=== PATIENT | female | born 1940 | race Caucasian/White ===

== ENCOUNTER → 2018-03-23 13:59 | Outpatient (CLI) | payer MEDICARE, SELFPAY ==
--- NOTE | 2018-03-23 14:01 | DI.RAD.S_ITS ---
PROCEDURE: XR LUMBAR SPINE MIN 4V INDICATIONS: Evaluation TECHNIQUE: 4 views of the lumbar spine were acquired. COMPARISON: None. FINDINGS: Bones: No fracture or focal osseous destruction. Trace anterolisthesis of L4-L5. Diffuse facet arthropathy. Severe narrowing of the L3-L4 disc space. [id number] narrowing of the L1-L2 disc space. Partially visualized dextroscoliosis centered at L1 Soft tissues: Calcifications project in the right upper quadrant. No suspicious soft tissue calcifications. Oblique images: No pars defects. IMPRESSION: Multilevel lumbar disc degeneration as above, most pronounced at L3-L4 Facet arthropathy. Dextroscoliosis Dictated by: Tobias Meza M.D. on 03/23/2018 at 16:50 Approved by: Tobias Meza M.D. on 03/23/2018 at 16:51
== END ==
PROVIDERS: PCP Family Medicine; Visit Provider Physical Medicine & Rehabilitation
DX: M47.817 Spondylosis without myelopathy or radiculopathy, lumbosacral region (principal); M47.816 Spondylosis without myelopathy or radiculopathy, lumbar region; M51.36 Other intervertebral disc degeneration, lumbar region; M51.37 Other intervertebral disc degeneration, lumbosacral region; M41.86 Other forms of scoliosis, lumbar region
CPT/HCPCS: 72110; 99214

== ENCOUNTER 2018-05-11 10:41 | Emergency (ER) | payer MEDICARE, SELFPAY ==
[2018-05-11 10:45] VITALS: BP 199/92; PULSE 77; RESP 16; TEMP 36.6; O2SAT 100
[2018-05-11 11:03] LABS: Add Manual Diff / Slide Review NO; Basophils Percent Auto 0.9 % (0-2); Eosinophils Percent Auto 1.2 % (2-4); Hematocrit 38.4 % (36-46); Hemoglobin 13.1 g/dL (12.0-16.0); Lymphocytes Percent Auto 15.8 % (25-40); Mean Corpuscular Hemoglobin 30.5 PG (26-34); Mean Corpuscular Volume 89.7 fL (80-100); Monocytes Percent Auto 6.3 % (3-14); Neutrophils Absolute Auto 5800 /uL (3000-5900); Neutrophils Percent Auto 75.8 % (50-75); Platelet Count 358 X10^3/uL (150-400); Red Blood Cell Count 4.28 X10^6/uL (4.0-5.2); Red Cell Distribution Width 12.3 % (11.6-14.8); White Blood Cell Count 7.7 X10^3/uL (4.5-11.0)
[2018-05-11 11:14] LABS: Alanine Aminotransferase 19 IU/L (9-52); Albumin 4.5 g/dL (3.5-5.0); Albumin Globulin Ratio 1.4 (1.0-2.8); Alkaline Phosphatase 83 U/L (38-126); Aspartate Aminotransferase 27 IU/L (14-36); Bilirubin Total 0.7 mg/dL (0.2-1.3); Blood Urea Nitrogen 10 mg/dL (7-17); Carbon Dioxide 23 mmol/L (22-32); Chloride 97 mmol/L (98-107); Creatine Kinase 52 U/L (30-135); Estimated Glomerular Filt Rate > 60.0 mL/min (>60); Globulin 3.2 g/dL (1.7-4.1); Glucose 129 mg/dL (80-110); Potassium 4.4 mmol/L (3.4-5.1); Sodium 134 mmol/L (137-145); Total Protein 7.7 g/dL (6.3-8.2)
[2018-05-11 11:16] LABS: HEMOLYSIS 79 (0-50)
[2018-05-11 11:26] LABS: Troponin I < 0.012 ng/mL (0.01-0.034)
[2018-05-11 11:58] VITALS: BP 175/85; PULSE 71; RESP 15; O2SAT 100
--- NOTE | 2018-05-21 13:32 | ED_ITS ---
HPI - Chest Pain General Chief Complaint: Chest Pain Stated Complaint: Doc thinks had heart attack Time Seen by Provider: 05/11/18 10:52 Source: patient Mode of arrival: ambulatory Limitations: no limitations History of Present Illness HPI narrative: Patient presents the emergency department 36 hr after onset of left shoulder and arm pain and high blood pressure. Patient states she has never had symptoms like this before; she was at rest when she checked her blood pressure, and discovered that it was nearly 200 systolic. She states she then noticed a pain in her left shoulder radiating down her left arm. She states that this was quite short-lived and only lasted a few ?few minutes,? and that it was a 4/10 at worst. Nothing made the pain better or worse. When she saw her doctor the next morning, he felt that she should be transferred here emergently for further evaluation. However, the patient stated that she did not want to fly and a small aircraft, as the winds were very strong, and she decided to wait until the weather calmed down and she could take a ferry. Patient states that she otherwise was stable, and that the both pain resolved on its own, though her blood pressure has remained elevated. Patient denies further complaints at this time. She states she has not had any nausea or vomiting; no diaphoresis or lightheadedness. Patient has not been ill with anything recently. No history of dysrhythmia. Patient states she is otherwise healthy for the most part, though she does have hypertension, hyperlipidemia, and hypothyroidism. She states her blood pressure is usually well controlled on her current medication regimen. Related Data Home Medications Medication Instructions Recorded Confirmed dorzolamide 22.3 mg-timolol 6.8 1 drp EYE-BOTH BID ml 03/23/18 05/11/18 mg/mL eye drops Eye Vitamins 1 dose PO DAILY 05/11/18 05/11/18 Fish Oil 1 cap PO DAILY 05/11/18 05/11/18 Vitamin D3 1 cap PO DAILY 05/11/18 05/11/18 zolpidem 10 mg PO BEDTIME PRN 05/11/18 05/11/18 Previous Rx's Medication Instructions Recorded levothyroxine [Synthroid] 75 mcg PO QAM #90 tab 09/13/16 lisinopril 10 mg PO BID #60 tab 10/11/16 Allergies Allergy/AdvReac Type Severity Reaction Status Date / Time amoxicillin [AMOXICILLIN] Allergy Mild rash Verified 03/23/18 13:03 brimonidine Allergy Unknown Verified 03/23/18 13:03 Sulfa (Sulfonamide Allergy Unknown Verified 03/23/18 13:03 Antibiotics) Review of Systems Review of Systems All systems reviewed & are unremarkable except as noted in HPI and below Constitutional Denies chills, Denies fever(s), Denies lethargy and Denies weakness Eyes Denies change in vision, Denies eye discharge, Denies irritation and Denies loss of vision ENT Ears, Nose, Mouth, and Throat: Denies change in voice, Denies neck pain and Denies sore throat Cardiovascular Reports chest pain, Denies irregular heart rhythm, Denies lightheadedness, Denies palpitations, Denies dyspnea, Denies dyspnea on exertion and Denies orthopnea Respiratory Denies cough, Denies dyspnea, Denies dyspnea on exertion and Denies wheezing Gastrointestinal Gastrointestinal: Denies abdominal pain, Denies change in bowel habits, Denies diarrhea, Denies nausea and Denies vomiting Genitourinary Denies hematuria, Denies flank pain, Denies urinary incontinence and Denies urinary urgency Musculoskeletal Denies neck pain Integumentary/Breasts Denies pruritus, Denies erythema, Denies rash and Denies wounds Neurologic Denies confusion, Denies loss of vision and Denies weakness Psychiatric Denies anxiety, Denies confusion, Denies depression, Denies homicidal ideation and Denies suicidal ideation Endocrine Denies palpitations Hematologic/Lymphatic Denies easy bruising Allergic/Immunologic Denies wheezing [facility] Medical History Lumbosacral spondylosis (Chronic) Atypical chest pain (Acute) Chest pain (Acute) Hypertension (Acute 09/17/14) Hyperlipidemia (09/17/14) Hypothyroidism (09/17/14) Macular degeneration (07/28/15) Primary open angle glaucoma (POAG) of both eyes (07/28/15) Status post carotid endarterectomy (07/28/15) History of malignant neoplasm of breast (07/28/16) HTN (hypertension) (Acute) Surgical History Status post partial mastectomy Family History Brother Age: 75 Stroke Father Stroke Mother Heart disease Social History Smoking Status: Never smoker Exam Initial Vital Signs Initial Vital Signs: Vital Signs Temperature 97.9 F 05/11/18 10:45 Pulse Rate 77 05/11/18 10:45 Respiratory Rate 16 05/11/18 10:45 Blood Pressure 199/92 H 05/11/18 10:45 Pulse Oximetry 100 05/11/18 10:45 Const General: cooperative and well developed Nutritional Appearance: well nourished Orientation: alert, awake, oriented x3 and not confused [facility] Head: normocephalic and atraumatic Ears: external ears normal Nose: external nose normal and No nasal discharge Face and sinus: face symmetric and No dry mucous membranes Mouth: oral mucosae normal and moist mucous membranes Teeth and gingiva: dentition normal Eyes General: appearance normal, both eyes and all related structures Eyelids: eyelids normal Conjunctivae: conjunctivae normal Sclera: sclerae normal Pupils: PERRL EOM: EOM intact bilaterally Neck Neck: normal visual inspection, trachea midline, No lymphadenopathy, No midline deformity and No JVD Lymphatic: No lymphedema Chest Chest: normal inspection of the chest Resp Effort & Inspection: normal respiratory effort, able to speak in complete sentences, no respiratory distress and no use of accessory muscles Auscultation: clear to auscultation bilaterally, no rales, no rhonchi and no wheezes Cardio Rate: regular rate Rhythm: regular rhythm Heart Sounds: no click, no gallops, no murmurs and no rubs Pulses: normal peripheral pulses GI Inspection: non-distended Palpation: soft, no hepatosplenomegaly, No guarding, No pulsatile mass and No tender Auscultation: normal bowel sounds Back/Spine/Pelvis Back: No CVA tenderness Cervical Spine: cervical ROM normal and No pain with cervical ROM Thoracic/Lumbar Spine: thoracic and lumbar spine normal to inspection Skin General: no rashes or lesions noted, No jaundice and No petechiae Neuro General: alert, oriented x3, gait normal and no focal motor deficits Speech: speech normal Extrem General: full ROM, no clubbing, cyanosis or edema, no pedal edema and no calf tenderness Psych Appearance: well kempt Mental Status: mental status grossly normal Attitude: cooperative Thought Content: normal and suicidality Judgment: judgment good Course Course Narrative: The patient was stable in the emergency department, and her chest pain had long since resolved. Blood pressure was still somewhat elevated , though was found to be progressively normalizing throughout her stay. She was worked up with an EKG and labs, both of which were unremarkable. I discussed with the patient that at this point, this far out, and she had had an NV, this should show up S a positive troponin. Have discussed with the patient that she should follow this incident up with a stress test, which can be arranged by her primary care physician. If she develops further chest pain or other concerning symptoms, such as shortness of breath or syncope, then she will probably need to be admitted to the hospital for further evaluation, or have a more urgent cardiology consultation. However, at this point, it is not clear exactly what caused her blood pressure to elevate or the pain to occur. However, no emergent condition has been identified. We have discussed the usual indications for return. MDM - Chest Pain Medical Records Data Attestation: I reviewed the patient's medical records. Lab Data Attestation: I reviewed the patient's lab results. Result diagrams: 05/11/18 10:50 05/11/18 10:50 Lab Results 05/11/18 05/11/18 Range/Units 10:50 10:50 WBC 7.7 (4.5-11.0) X10^3/uL RBC 4.28 (4.0-5.2) X10^6/uL Hgb 13.1 (12.0-16.0) g/dL Hct 38.4 (36-46) % MCV 89.7 (80-100) fL MCH 30.5 (26-34) PG MCHC 34.0 (30-36) % RDW 12.3 (11.6-14.8) % Plt Count 358 (150-400) X10^3/uL Neut % (Auto) 75.8 H (50-75) % Lymph % (Auto) 15.8 L (25-40) % [place] % (Auto) 6.3 (3-14) % Eos % (Auto) 1.2 L (2-4) % Baso % (Auto) 0.9 (0-2) % Neut # (Auto) 5800 (4090-1284) /uL Sodium 134 L (137-145) mmol/L Potassium 4.4 (3.4-5.1) mmol/L Chloride 97 L (98-107) mmol/L Carbon Dioxide 23 (22-32) mmol/L BUN 10 (7-17) mg/dL Creatinine 0.50 L (0.52-1.04) mg/dL Estimated GFR > 60.0 (>60) mL/min BUN/Creatinine Ratio 20.0 (6-22) Glucose 129 H (80-110) mg/dL Calcium 9.0 (8.4-10.2) mg/dL Total Bilirubin 0.7 (0.2-1.3) mg/dL AST 27 (14-36) IU/L ALT 19 (9-52) IU/L Alkaline Phosphatase 83 (38-126) U/L Total Creatine Kinase 52 (30-135) U/L CK-MB (CK-2) TNP CK-MB (CK-2) Rel Index TNP Troponin I < 0.012 (0.01-0.034) ng/mL Total Protein 7.7 (6.3-8.2) g/dL Albumin 4.5 (3.5-5.0) g/dL Globulin 3.2 (1.7-4.1) g/dL Albumin/Globulin Ratio 1.4 (1.0-2.8) ECG Data Attestation: I personally reviewed and interpreted this ECG as follows: (See below) Interpretation: Twelve lead EKG performed May 11, 2018 at 10:50 a.m., as follows: Regular ventricular rhythm with a rate of 82 beats per min OR interval 177 milliseconds QRS duration 93 millisecond QTC interval 427 milliseconds Left axis deviation Nonspecific ST T wave changes In summary, normal sinus rhythm, with marked left axis deviation; no STEMI; in summary, abnormal EKGs interpreted by ED MD. Discharge Plan Departure Patient Disposition: Home Clinical Impression: Chest pain, Hypertension Discharge Date/Time: 05/11/18 11:59 Interventions: ED Discharge Assessment Last Done: 05/11/18 11:58 Instructions: DI for High Blood Pressure, DI for Chest Pain Activity Restrictions/Additional Instructions: Your labs and EKG look great today. By now, if you had had a heart attack within the last day or two, we should see elevated cardiac enzymes in your blood. Because these take a number of days to be taken out of your system by your body, the numbers remain positive for some days afterward. However, if you had an abnormal EKG, it is probably a good idea to have another stress test done. Please talk to your primary doctor about having this done. Prescriptions: No Action levothyroxine [Synthroid] 75 MCG tablet 75 mcg PO QAM Qty: 90 RF: 2 lisinopril 10 MG tablet 10 mg PO BID Qty: 60 RF: 11 Eye Vitamins 1 dose PO DAILY RF: 0 Fish Oil 1 cap PO DAILY RF: 0 Vitamin D3 1 cap PO DAILY RF: 0 zolpidem 10 MG tablet 10 mg PO BEDTIME PRN (Reason: Sleep) RF: 0 dorzolamide-timolol [Cosopt] 22.3-6.8 mg/mL drops 1 drp EYE-BOTH BID RF: 0 Referrals: North Hart MD [Primary Care Provider] -
== END 2018-05-11 11:59 | disposition home or self-care (01) ==
PROVIDERS: Emergency Provider Emergency Medicine; PCP Family Medicine
DX: I10 Essential (primary) hypertension (principal); R07.89 Other chest pain
CPT/HCPCS: 36415; 80053; 82550; 84484; 85025; 93005; 93010; 99282; 99284

== ENCOUNTER → 2018-12-27 12:25 | Outpatient (CLI) | payer MEDICARE, SELFPAY ==
--- NOTE | 2018-12-27 | DI.MRI.S_ITS ---
PROCEDURE: MR LUMBAR SPINE WO CON INDICATIONS: Spondylosis without myelopathy or radiculopathy TECHNIQUE: Noncontrast sagittal T1 spin echo and T2 fast echo, sagittal STIR, axial T1 and T2 fast spin echo through the lumbar spine. In cases with scoliosis, additional coronal T2 fast spin echo may be performed. COMPARISON: [facility], CR, XR LUMBAR SPINE MIN 4V, 03/23/2018, 13:46. FINDINGS: Image quality: Excellent. Alignment and Curvature: Mild dextroconvex scoliotic curvature is seen. Minimal retrolisthesis is seen at the L1-L2 and L2-L3 levels. Bone Marrow: Marrow is of normal overall signal. There is a fracture of the superior endplate of T12, with 20% loss of height centrally. There is decreased T1 weighted signal and increased T2-weighted/STIR signal. No posterior displacement of fracture fragments can be seen. Spinal Cord: Conus medullaris terminates at the L1 level. Visualized cord demonstrates normal signal and size. Paraspinous Soft Tissues: No paravertebral masses. T12-L1: Normal appearance. L1-L2: The disc height is well-preserved. Loss of disc signal is seen at this level. Mild generalized disc bulge is seen. L2-L3: The disc height is well-preserved. Loss of disc signal is seen at this level. Mild generalized disc bulge is seen. Mild bilateral neural foraminal narrowing is seen. No significant central canal narrowing is seen. L3-L4: Moderate to severe loss of disc height and disc signal are seen, particularly on the left side. Endplate irregularity is seen. Reactive marrow endplate changes are seen, which are hyperintense on T1-weighted and T2-weighted imaging and most consistent with fatty metaplasia (Modic type II changes). Moderate to prominent disc bulge is seen, which is eccentric to the left. There is moderate left-sided and mild right-sided neural foraminal narrowing seen. Mild central canal narrowing is seen. L4-L5: Mild loss of disc height is seen. Loss of disc signal is seen. Moderate generalized disc bulge is seen. There is moderate right-sided and mild left-sided facet seen. There is moderate bilateral neural foraminal narrowing seen at this level. Mild central canal narrowing is seen. L5-S1: The disc height is well-preserved. Loss of disc signal is seen at this level. Minimal disc bulge is seen. [id number] facet hypertrophy is seen at this level. Mild bilateral neural foraminal narrowing is seen. No significant central canal narrowing is seen. IMPRESSION: Multiple levels of lumbar spine degenerative change are seen, which are most prominent at the L3-L4 level. Likely subacute compression deformity of the superior endplate of T12, with 20% loss of height centrally. No posterior displacement of fracture fragments can be seen. Dictated by: Lauro Puri M.D. on 12/27/2018 at 14:31 Approved by: Lauro Puri M.D. on 12/27/2018 at 14:37
== END ==
PROVIDERS: PCP Family Medicine; Visit Provider Physical Medicine & Rehabilitation
DX: M47.816 Spondylosis without myelopathy or radiculopathy, lumbar region (principal)
CPT/HCPCS: 72148

== ENCOUNTER → 2020-10-28 08:32 | Outpatient (CLI) | payer MEDICARE, SELFPAY ==
[2020-10-28 19:32] LABS: Alanine Aminotransferase 14 IU/L (<35); Albumin 4.1 g/dL (3.5-5.0); Albumin Globulin Ratio 1.6 (1.0-2.8); Alkaline Phosphatase 63 U/L (38-126); Aspartate Aminotransferase 28 IU/L (14-36); BUN Creatinine Ratio 22.7 (6-22); Bilirubin Total 0.5 mg/dL (0.2-1.3); Blood Urea Nitrogen 15 mg/dL (7-17); Calcium 9.2 mg/dL (8.4-10.2); Carbon Dioxide 26 mmol/L (22-32); Chloride 96 mmol/L (98-107); Cholesterol 231 mg/dL (140-199); Estimated Glomerular Filt Rate > 60.0 mL/min (>60); Globulin 2.5 g/dL (1.7-4.1); Glucose 91 mg/dL (80-110); HDL Cholesterol 64 mg/dL (40-60); HEMOLYSIS < 15 (0-50); LDL Cholesterol Calculated 143 mg/dL (<100); Potassium 4.5 mmol/L (3.4-5.1); Sodium 130 mmol/L (137-145); Total Protein 6.6 g/dL (6.3-8.2); Triglycerides 121 mg/dL (35-150)
[2020-10-28 19:34] LABS: Add Manual Diff / Slide Review NO; Basophils Absolute Auto 100 /uL (0-100); Basophils Percent Auto 2.4 % (0-2); Eosinophils Absolute Auto 200 /uL (0-450); Eosinophils Percent Auto 4.4 % (2-4); Hematocrit 38.5 % (36-46); Hemoglobin 12.7 g/dL (12.0-16.0); Lymphocytes Absolute Auto 1200 /uL (1100-4500); Lymphocytes Percent Auto 30.8 % (25-40); Mean Corpuscular HGB Conc 33.1 % (30-36); Mean Corpuscular Hemoglobin 30.3 PG (26-34); Mean Corpuscular Volume 91.6 fL (80-100); Monocytes Absolute Auto 500 /uL (0-900); Monocytes Percent Auto 11.9 % (3-14); Neutrophils Absolute Auto 2000 /uL (1500-7000); Neutrophils Percent Auto 50.5 % (50-75); Platelet Count 240 X10^3/uL (150-400); Red Cell Distribution Width 13.1 % (11.6-14.8)
[2020-10-28 20:01] LABS: TSH w/ Reflex to FT4 1.96 uIU/mL (0.47-4.68)
== END ==
PROVIDERS: PCP Family Medicine; Visit Provider Family Medicine
DX: E03.9 Hypothyroidism, unspecified (principal); R07.89 Other chest pain; I10 Essential (primary) hypertension; E78.5 Hyperlipidemia, unspecified; G47.00 Insomnia, unspecified
CPT/HCPCS: 80053; 80061; 84443; 85025

== ENCOUNTER → 2021-07-08 08:50 | Outpatient (CLI) | payer MEDICARE, SELFPAY ==
[2021-07-08 20:10] LABS: COVID19 - ORCAS (NP or Nasal) Negative (Negative)
== END ==
PROVIDERS: PCP Physician Assistant Medical; Visit Provider Physician Assistant
DX: Z20.822 Contact with and (suspected) exposure to COVID-19 (principal)
CPT/HCPCS: U0003

== ENCOUNTER 2021-07-10 14:41 | Emergency (ER) | payer MEDICARE, SELFPAY ==
[2021-07-10] VITALS (9 sets, daily range): BP systolic 109–174; BP diastolic 61–82; PULSE 73–96; RESP 16–24; TEMP 37; O2SAT 91–100; BMI 25.0
--- NOTE | 2021-07-10 14:51 | DI.RAD.S_ITS ---
PROCEDURE: XR CHEST 1V INDICATIONS: chest pain TECHNIQUE: One view of the chest was acquired. COMPARISON: None. FINDINGS: Surgical changes and devices: Right axilla surgical clips.. Lungs and pleura: Lungs are clear. No pleural effusions or pneumothorax. Mediastinum: Mediastinal contours appear normal. Heart size is normal. Bones and chest wall: No suspicious bony lesions. Overlying soft tissues appear unremarkable. IMPRESSION: No acute cardiopulmonary disease process. Dictated by: Evelyne Don MD, PhD on 07/10/2021 at 15:16 Approved by: Evelyne Don MD, PhD on 07/10/2021 at 15:16
[2021-07-10 15:44] LABS: Add Manual Diff / Slide Review NO; Basophils Absolute Auto 100 /uL (0-100); Basophils Percent Auto 1.3 % (0-2); Eosinophils Absolute Auto 100 /uL (0-450); Eosinophils Percent Auto 2.6 % (2-4); Hematocrit 38.3 % (36-46); Hemoglobin 13.1 g/dL (12.0-16.0); Lymphocytes Absolute Auto 1100 /uL (1100-4500); Lymphocytes Percent Auto 20.3 % (25-40); Mean Corpuscular HGB Conc 34.1 % (30-36); Mean Corpuscular Hemoglobin 30.9 PG (26-34); Mean Corpuscular Volume 90.6 fL (80-100); Monocytes Absolute Auto 500 /uL (0-900); Monocytes Percent Auto 8.7 % (3-14); Neutrophils Absolute Auto 3700 /uL (1500-7000); Neutrophils Percent Auto 67.1 % (50-75); Platelet Count 287 X10^3/uL (150-400); Red Blood Cell Count 4.22 X10^6/uL (4.0-5.2); Red Cell Distribution Width 13.2 % (11.6-14.8); White Blood Cell Count 5.6 X10^3/uL (4.5-11.0)
[2021-07-10 15:48] LABS: Alanine Aminotransferase 34 IU/L (<35); Albumin 4.8 g/dL (3.5-5.0); Albumin Globulin Ratio 1.7 (1.0-2.8); Alkaline Phosphatase 66 U/L (38-126); Aspartate Aminotransferase 35 IU/L (14-36); BUN Creatinine Ratio 18.4 (6-22); Bilirubin Total 0.7 mg/dL (0.2-1.3); Blood Urea Nitrogen 16 mg/dL (7-17); Calcium 9.7 mg/dL (8.4-10.2); Carbon Dioxide 28 mmol/L (22-32); Chloride 102 mmol/L (98-107); Creatine Kinase 47 U/L (30-135); Estimated Glomerular Filt Rate > 60.0 mL/min (>60); Globulin 2.8 g/dL (1.7-4.1); Glucose 114 mg/dL (80-110); HEMOLYSIS 17 (0-50); Lipase 163 U/L (23-300); Magnesium 2.1 mg/dL (1.6-2.3); Potassium 3.8 mmol/L (3.4-5.1); Sodium 135 mmol/L (137-145); Total Protein 7.6 g/dL (6.3-8.2)
[2021-07-10 15:59] LABS: Troponin I < 0.012 ng/mL (0.01-0.034)
--- NOTE | 2021-07-10 17:12 | ED_ITS ---
HPI - Arrhythmia/Palpitations General Chief Complaint: Arrhythmia/Palpitations Stated Complaint: Afib, Sent By [employer] Time Seen by Provider: 07/10/21 15:26 Source: patient Mode of arrival: Ambulatory History of Present Illness HPI narrative: Patient is a 81-year-old female who has history of hypertension presenting at request of primary care provider. She says she has felt dizzy lightheaded for while but getting much worse for about 2 weeks. She has some shortness of breath with exertion and some chest heaviness as well. She was worried about COVID and had a negative COVID test today. She son infomercial on TV about atrial fibrillation and thought it might be that. She went to her primary care provider for she was found to be in new onset atrial fibrillation. She denies any palpitations fluttering nausea vomiting. She has no numbness tingling or weakness. At this time her heart rate is controlled with a rate under 100. She took 81 mg of aspirin already today. Related Data Home Medications Medication Instructions Recorded Confirmed dorzolamide 22.3 mg-timolol 6.8 1 drp EYE-BOTH BID ml 03/23/18 04/09/21 mg/mL eye drops (Cosopt) Eye Vitamins 1 dose PO DAILY 05/11/18 04/09/21 Fish Oil 1 cap PO DAILY 05/11/18 04/09/21 Vitamin D3 1 cap PO DAILY 05/11/18 04/09/21 aspirin 81 mg tablet,delayed 81 mg PO DAILY 10/06/20 04/09/21 release (Adult Low Dose Aspirin) Previous Rx's Medication Instructions Recorded amlodipine 5 mg tablet 5 mg PO DAILY #90 tab 01/07/21 levothyroxine 75 mcg tablet 75 mcg PO QAM #90 tab 02/20/21 (Synthroid) lisinopril 10 mg tablet 10 mg PO BID #180 tab 03/02/21 pharmacy compounding accessory See Rx Instructions .ROUTE 04/09/21 .COMPLEX #24 g tramadol 50 mg tablet 50 mg PO BEDTIME #20 tab 04/09/21 triamcinolone acetonide 0.025 % 1 applic TOPICAL BID #60 ml 04/09/21 lotion zolpidem 10 mg tablet 5 mg PO BEDTIME PRN #30 tab 05/26/21 metoprolol succinate 25 mg 25 mg PO DAILY #30 tab 07/10/21 tablet,extended release 24 hr Allergies Allergy/AdvReac Type Severity Reaction Status Date / Time amoxicillin [AMOXICILLIN] Allergy Mild rash Verified 07/10/21 14:51 adhesive Allergy Unknown Rash Verified 07/10/21 14:51 brimonidine Allergy Unknown Verified 07/10/21 14:51 fentanyl Allergy Unknown Verified 07/10/21 14:51 Sulfa (Sulfonamide Allergy Unknown Verified 07/10/21 14:51 Antibiotics) Review of Systems Review of Systems Narrative: GENERAL: Denies chills, fatigue, malaise, fever, sweats, travel HEENT: Denies sinus pain, ear pain, sore throat, difficulty swallowing, neck pain RESPIRATORY: See HPI CARDIOVASCULAR: See HPI GASTROINTESTINAL: Denies nausea, vomiting, abdominal pain, diarrhea, consti pation, melena. : Denies dysuria, frequency, incontinence, hematuria, urinary retention, flank pain. MUSCULOSKELETAL: Denies weakness, joint pain, or bony pain SKIN: No rash, no erythema, no pruritus NEUROLOGIC: See HPI PSYCHIATRIC: No concerning psychosocial issues. 12 point review of systems is negative except for those stated above and HPI Patient History Medical History Atypical chest pain Chest pain History of malignant neoplasm of breast (07/28/16) HTN (hypertension) Hyperlipidemia (09/17/14) Hypertension (09/17/14) Hypothyroidism (09/17/14) Lumbosacral spondylosis Macular degeneration (07/28/15) Primary open angle glaucoma (POAG) of both eyes (07/28/15) Recurrent UTI Status post carotid endarterectomy (07/28/15) Surgical History Status post partial mastectomy Family History Brother Age: 78 Stroke Father Stroke Mother Heart disease Social History Smoking Status: Never smoker Smoking Status: Never smoker alcohol intake frequency: holidays/special occasions only Substance Use Type: does not use Exam Initial Vital Signs Initial Vital Signs: Vital Signs Temperature 98.6 F 07/10/21 14:46 Pulse Rate 86 07/10/21 14:46 Respiratory Rate 16 07/10/21 14:46 Blood Pressure 164/79 H 07/10/21 14:46 Pulse Oximetry 98 07/10/21 14:46 GENERAL: Alert well-appearing 81-year-old female HEENT: Head atraumatic,EOMI, pupils reactive, face symmetric, moist mucous membranes CARDIOVASCULAR: Irregularly irregular no murmurs RESPIRATORY: Breath sounds equal bilaterally, no wheezes rales or rhonchi. ABDOMEN: Soft, nontender. Normoactive bowel sounds all 4 quadrants. No guarding or rebound. EXTREMITIES: Normal range of motion, no clubbing or edema. Neurovascularly intact NEUROLOGICAL: Alert and oriented x4.Normal gait and speech. SKIN: Warm, dry, no laceration, no petechiae, no rashes or lesions. Scores CHADS-VASc Congestive heart failure: no Hypertension: yes Age 75 years or older: yes Diabetes mellitus: no Stroke, TIA, or TE: no Vascular disease: no Age 65 to 74 years: no Sex category (female): Female CHADS-VASc Score: 4 Course Orders Ordered: ED Orders 07/10/21 14:51 XR chest 1V Stat EKG-12 Lead Stat 07/10/21 15:15 Complete Blood Count AUTO DIFF Stat Comprehensive Metabolic Panel Stat Lipase Stat Magnesium Stat Troponin & CK Cardiac Panel Stat Discontinued Medications Metoprolol Succinate (Metoprolol Er 25 Mg Tablet) 25 mg PO NOW ONE Stop: 07/10/21 17:40 Last Admin: 07/10/21 18:13 Dose: 25 mg Documented by: JOSAFAT Vital Signs Vital signs: Vital Signs - 8 hr 07/10/21 14:46 07/10/21 15:24 07/10/21 15:30 Temperature 98.6 F Pulse Rate 86 89 80 Respiratory Rate 16 20 20 Blood Pressure 164/79 H 109/72 Pulse Oximetry 98 100 99 07/10/21 16:00 07/10/21 16:30 07/10/21 17:00 Temperature Pulse Rate 77 81 92 H Respiratory Rate 19 20 20 Blood Pressure 117/65 118/61 Pulse Oximetry 99 98 100 07/10/21 17:30 07/10/21 18:00 07/10/21 18:13 Temperature Pulse Rate 95 H 89 96 H Respiratory Rate 24 22 23 Blood Pressure 146/71 H 174/82 H Pulse Oximetry 91 99 MDM - Arrhythmia/Palpitations Lab Data Result diagrams: 07/10/21 15:15 07/10/21 15:15 Labs: Lab Results 07/10/21 07/10/21 Range/Units 15:15 15:15 WBC 5.6 (4.5-11.0) X10^3/uL RBC 4.22 (4.0-5.2) X10^6/uL Hgb 13.1 (12.0-16.0) g/dL Hct 38.3 (36-46) % MCV 90.6 (80-100) fL MCH 30.9 (26-34) PG MCHC 34.1 (30-36) % RDW 13.2 (11.6-14.8) % Plt Count 287 (150-400) X10^3/uL Neut % (Auto) 67.1 (50-75) % Lymph % (Auto) 20.3 L (25-40) % [place] % (Auto) 8.7 (3-14) % Eos % (Auto) 2.6 (2-4) % Baso % (Auto) 1.3 (0-2) % Neut # (Auto) 3700 (1039-2150) /uL Lymph # (Auto) 1100 (8810-7638) /uL [place] # (Auto) 500 (0-900) /uL Eos # (Auto) 100 (0-450) /uL Baso # (Auto) 100 (0-100) /uL Sodium 135 L (137-145) mmol/L Potassium 3.8 (3.4-5.1) mmol/L Chloride 102 (98-107) mmol/L Carbon Dioxide 28 (22-32) mmol/L BUN 16 (7-17) mg/dL Creatinine 0.87 (0.52-1.04) mg/dL Estimated GFR > 60.0 (>60) mL/min BUN/Creatinine Ratio 18.4 (6-22) Glucose 114 H (80-110) mg/dL Calcium 9.7 (8.4-10.2) mg/dL Magnesium 2.1 (1.6-2.3) mg/dL Total Bilirubin 0.7 (0.2-1.3) mg/dL AST 35 (14-36) IU/L ALT 34 (<35) IU/L Alkaline Phosphatase 66 (38-126) U/L Total Creatine Kinase 47 (30-135) U/L CK-MB (CK-2) TNP CK-MB (CK-2) Rel Index TNP Troponin I < 0.012 (0.01-0.034) ng/mL Total Protein 7.6 (6.3-8.2) g/dL Albumin 4.8 (3.5-5.0) g/dL Globulin 2.8 (1.7-4.1) g/dL Albumin/Globulin Ratio 1.7 (1.0-2.8) Lipase 163 (23-300) U/L Imaging Data Chest x-ray: Radiologist's Impresson: PROCEDURE:? XR CHEST 1V ? INDICATIONS:? chest pain ? TECHNIQUE:? One view of the chest was acquired.? ? COMPARISON:? None. ? FINDINGS:? ? Surgical changes and devices:? Right axilla surgical clips..? ? Lungs and pleura:? Lungs are clear.? No pleural effusions or pneumothorax.? ? Mediastinum:? Mediastinal contours appear normal.? Heart size is normal.? ? Bones and chest wall:? No suspicious bony lesions.? Overlying soft tissues appear unremarkable.? ? IMPRESSION:? No acute cardiopulmonary disease process. ? ? Dictated by: Evelyne Don MD, PhD on 07/10/2021 at 15:16 ?? ECG Data Interpretation: Atrial fibrillation rate 89, PVCs noted no ST changes MDM Narrative Medical decision making narrative: Patient is in atrial fibrillation she is not a candidate for cardioversion she minimal symptoms. Currently she is rate controlled. She does have elevated chads Vasc score however at the age of 81 hesitant to put her on anything other than aspirin with out discussing with her primary care provider. She has seen Dr. Ashraf in the past but would like to see someone else who is closer. She is given 1 dose of metoprolol in the ED recommend she continue her aspirin discussed with her stroke risks of atrial fibrillation. At this time she does not want to stay in the hospital. I discussed all findings with the patient, Education has been performed regarding treatment plan, diagnosis, warning signs and symptoms and all concerns have been addressed. Verbally agree with and understood all of the above. Discharge Plan Departure Patient Disposition: Home Clinical Impression: Atrial fibrillation Instructions: DI for Atrial Fibrillation Activity Restrictions/Additional Instructions: *You have been diagnosed with atrial fibrillation *What to do: At this time have atrial fibrillation, you are risk that for stroke. You will need further workup. *Continue to take medications as directed Aspirin 81 mg once a day Metoprolol 25 mg once daily--> SENT TO [facility] *Follow up with your primary care provider in 2-3 days or call [phone] Call Cardiology for further workup *Return to ER if you should have increased chest pain palpitations shortness of breath dizziness lightheadedness or any new, worsening or concerning symptoms Prescriptions: New metoprolol succinate 25 mg tablet extended release 24 hr 25 mg PO DAILY Qty: 30 0RF No Action amlodipine 5 mg tablet 5 mg PO DAILY Qty: 90 3RF levothyroxine [Synthroid] 75 mcg tablet 75 mcg PO QAM Qty: 90 2RF lisinopril 10 mg tablet 10 mg PO BID Qty: 180 1RF Label Comments: patient states took both of todays tablets this morning zolpidem 10 mg tablet 5 mg PO BEDTIME PRN (Reason: Sleep) Qty: 30 0RF Rx Instructions: fill date 05/29/2021 Eye Vitamins 1 dose PO DAILY 0RF Fish Oil 1 cap PO DAILY 0RF Vitamin D3 1 cap PO DAILY 0RF aspirin [Adult Low Dose Aspirin] 81 mg tablet,delayed release (DR/EC) 81 mg PO DAILY 0RF tramadol 50 mg tablet 50 mg PO BEDTIME Qty: 20 0RF triamcinolone acetonide 0.025 % lotion 1 applic topical BID Qty: 60 0RF pharmacy compounding accessory Misc See Rx Instructions .ROUTE .COMPLEX Qty: 24 5RF Rx Instructions: ==Compound Pharmacy== Estradiol 0.0125% cream; Apply pea size amount intravaginally twice a week; dorzolamide-timolol [Cosopt] 22.3-6.8 mg/mL drops 1 drp EYE-BOTH BID 0RF Referrals: Lida Pisano PA-C [Primary Care Provider] -
[2021-07-10] MEDS: METOPROLOL ER 25 MG TABLET PO (18:13)
== END 2021-07-10 18:27 | disposition home or self-care (01) ==
PROVIDERS: Emergency Provider Emergency Medicine; PCP Physician Assistant Medical
DX: I48.91 Unspecified atrial fibrillation (principal)
CPT/HCPCS: 36415; 71045; 80053; 82550; 83690; 83735; 84484; 85025; 93005; 93010; 99283; 99284

== ENCOUNTER → 2021-08-11 09:59 | Outpatient (CLI) | payer MEDICARE, SELFPAY ==
[2021-08-11 18:46] LABS: Cholesterol 211 mg/dL (140-199); HDL Cholesterol 67 mg/dL (40-60); LDL Cholesterol Calculated 124 mg/dL (<100); Triglycerides 100 mg/dL (35-150)
[2021-08-11 19:18] LABS: TSH w/ Reflex to FT4 1.81 uIU/mL (0.47-4.68)
== END ==
PROVIDERS: PCP Physician Assistant Medical; Visit Provider Nurse Practitioner Acute Care
DX: G47.00 Insomnia, unspecified (principal); R07.89 Other chest pain; E78.5 Hyperlipidemia, unspecified; I48.19 Other persistent atrial fibrillation
CPT/HCPCS: 80061; 84443

== ENCOUNTER → 2021-11-12 13:43 | Outpatient (CLI) | payer MEDICARE, SELFPAY ==
[2021-11-12 18:53] LABS: Add Manual Diff / Slide Review NO; Basophils Absolute Auto 100 /uL (0-100); Basophils Percent Auto 2.3 % (0-2); Eosinophils Absolute Auto 200 /uL (0-450); Eosinophils Percent Auto 3.5 % (2-4); Hematocrit 38.7 % (36-46); Hemoglobin 13.2 g/dL (12.0-16.0); Lymphocytes Absolute Auto 1200 /uL (1100-4500); Lymphocytes Percent Auto 21.2 % (25-40); Mean Corpuscular HGB Conc 34.1 % (30-36); Mean Corpuscular Hemoglobin 30.3 PG (26-34); Mean Corpuscular Volume 88.9 fL (80-100); Monocytes Absolute Auto 500 /uL (0-900); Monocytes Percent Auto 9.5 % (3-14); Neutrophils Absolute Auto 3600 /uL (1500-7000); Neutrophils Percent Auto 63.5 % (50-75); Platelet Count 241 X10^3/uL (150-400); Red Blood Cell Count 4.35 X10^6/uL (4.0-5.2); Red Cell Distribution Width 13.7 % (11.6-14.8); White Blood Cell Count 5.7 X10^3/uL (4.5-11.0)
[2021-11-12 19:16] LABS: C-Reactive Protein Quant < 0.5 mg/dL (<1.0)
[2021-11-12 19:36] LABS: Thyroid Stimulating Hormone 1.06 uIU/mL (0.47-4.68)
[2021-11-12 19:40] LABS: Erythrocyte Sedimentation Rate 7 MM/HR (0-20)
[2021-11-16 19:01] LABS: Hemoglobin A1C% w Est Avg Glu 5.5 % (4.0-6.0)
[2021-11-17 17:42] LABS: ANA Screen, IFA Positive (.)
[2021-11-18 09:04] LABS: Acetylcholine Blocking AB 19 % (0-25); Acetylcholine Receptor Bind AB <0.03 nmol/L (0.00-0.24)
== END ==
PROVIDERS: PCP Physician Assistant Medical
DX: H50.51 Esophoria (principal); H53.2 Diplopia; E03.9 Hypothyroidism, unspecified; H50.22 Vertical strabismus, left eye
CPT/HCPCS: 83036; 83519; 84443; 85025; 85651; 86038; 86140

== ENCOUNTER → 2022-04-02 10:40 | Outpatient (CLI) | payer MEDICARE, SELFPAY ==
[2022-04-02 11:55] LABS: Hematocrit 38.2 % (36-46); Hemoglobin 12.7 g/dL (12.0-16.0); Mean Corpuscular HGB Conc 33.3 % (30-36); Mean Corpuscular Hemoglobin 30.1 PG (26-34); Mean Corpuscular Volume 90.2 fL (80-100); Platelet Count 237 X10^3/uL (150-400); Red Blood Cell Count 4.24 X10^6/uL (4.0-5.2); Red Cell Distribution Width 13.5 % (11.6-14.8); White Blood Cell Count 4.5 X10^3/uL (4.5-11.0)
[2022-04-02 12:05] LABS: Alanine Aminotransferase 19 IU/L (<35); Albumin 4.3 g/dL (3.5-5.0); Albumin Globulin Ratio 1.8 (1.0-2.8); Alkaline Phosphatase 69 U/L (38-126); Aspartate Aminotransferase 24 IU/L (14-36); BUN Creatinine Ratio 16.9 (6-22); Bilirubin Total 0.5 mg/dL (0.2-1.3); Blood Urea Nitrogen 11 mg/dL (7-17); Carbon Dioxide 25 mmol/L (22-32); Chloride 96 mmol/L (98-107); Estimated Glomerular Filt Rate > 60 mL/min (>60); Globulin 2.4 g/dL (1.7-4.1); Glucose 80 mg/dL (80-110); HEMOLYSIS < 15 (0-50); Potassium 4.6 mmol/L (3.4-5.1); Sodium 130 mmol/L (137-145); Total Protein 6.7 g/dL (6.3-8.2)
[2022-04-02 12:08] LABS: Neutrophils Absolute Manual 2790 /uL (3000-5900); RBC Morphology Normal Morphology; Total Cells Counted 100
[2022-04-02 12:22] LABS: Free T4, Direct Thyroxine 1.67 ng/dL (0.78-2.19)
[2022-04-02 12:36] LABS: Thyroid Stimulating Hormone 0.806 uIU/mL (0.47-4.68)
== END ==
PROVIDERS: PCP Family Medicine; Referring Provider Family Medicine; Visit Provider Family Medicine
DX: R07.89 Other chest pain (principal); G47.00 Insomnia, unspecified; R53.83 Other fatigue
CPT/HCPCS: 36415; 80053; 84439; 84443; 85025

== ENCOUNTER 2022-10-01 16:27 | Emergency (ER) | payer MEDICARE, SELFPAY ==
[2022-10-01 16:36] VITALS: BP 186/82; PULSE 75; RESP 18; TEMP 36.2; O2SAT 99
[2022-10-01] MEDS: SODIUM CHLORIDE 0.9% 1,000 ML 1000 ML IV (16:48)
--- NOTE | 2022-10-01 17:07 | ED_ITS ---
HPI - Nausea/Vomiting/Diarrhea <Herminio Delacruz, DO - Last Filed: 10/02/22 07:19> General Chief complaint: Nausea/Vomiting/Diarrhea Stated complaint: vomiting/diarrhea since last night Time Seen by Provider: 10/01/22 16:38 Source: patient and EMS Mode of arrival: EMS History of Present Illness HPI Narrative: Patient is an 82-year-old female who is brought in by EMS for evaluation of approximately 12-18 hours of multiple episodes of vomiting and diarrhea. She states she did receive some Zofran by EMS prior to arrival which has helped her nausea. No fevers. She denies chest pain. No shortness of breath. No fevers. No recent antibiotics. No recent travel. No blood in her stool. No reported abdominal pain. No urinary symptoms. Related Data Home Medications Medication Instructions Recorded Confirmed dorzolamide 22.3 mg-timolol 6.8 1 drp EYE-BOTH BID 03/23/18 09/28/22 mg/mL eye drops (Cosopt) Eye Vitamins 1 dose PO DAILY 05/11/18 09/28/22 Fish Oil 1 cap PO DAILY 05/11/18 09/28/22 Vitamin D3 1 cap PO DAILY 05/11/18 09/28/22 aspirin 81 mg tablet,delayed 81 mg PO DAILY 10/06/20 09/28/22 release (Adult Low Dose Aspirin) Previous Rx's Medication Instructions Recorded amlodipine 5 mg tablet 5 mg PO DAILY #90 tabs 12/28/21 levothyroxine 75 mcg tablet 75 mcg PO QAM #90 tabs 02/04/22 (Synthroid) metoprolol succinate 25 mg 25 mg PO DAILY #90 tabs 02/04/22 tablet,extended release 24 hr pharmacy compounding accessory See Rx Instructions .Route 06/01/22 .COMPLEX #24 grams doxycycline monohydrate 100 mg 100 mg PO BID #10 tabs 08/05/22 tablet mupirocin 2 % topical ointment 1 applic topical TID #15 grams 08/05/22 lisinopril 10 mg tablet 10 mg PO BID #180 tabs 08/23/22 tramadol 50 mg tablet 50 mg PO BID PRN pain #60 tabs 09/28/22 zolpidem 10 mg tablet 10 mg PO BEDTIME PRN Sleep #30 tabs 09/28/22 Allergies Allergy/AdvReac Type Severity Reaction Status Date / Time amoxicillin [AMOXICILLIN] Allergy Mild rash Verified 09/28/22 14:03 adhesive Allergy Unknown Rash Verified 09/28/22 14:03 brimonidine Allergy Unknown Verified 09/28/22 14:03 fentanyl Allergy Unknown Verified 09/28/22 14:03 Sulfa (Sulfonamide Allergy Unknown Verified 09/28/22 14:03 Antibiotics) tramadol AdvReac Mild Nausea, Verified 09/28/22 14:03 vomitting Review of Systems <Herminio Delacruz DO - Last Filed: 10/02/22 07:19> Review of Systems ROS Unobtainable: All systems reviewed & are unremarkable except as noted in HPI and below Patient History <DO Izaiah Luna Last Filed: 10/02/22 07:19> Medical History Atypical chest pain Chest pain Chronic hypernatremia Encounter for Medicare annual wellness exam Ganglion History of malignant neoplasm of breast (07/28/16) HTN (hypertension) Hyperlipidemia (09/17/14) Hypertension (09/17/14) Hypothyroidism (09/17/14) Lumbosacral spondylosis Macular degeneration (07/28/15) Primary open angle glaucoma (POAG) of both eyes (07/28/15) Recurrent UTI Skin lesion Status post carotid endarterectomy (07/28/15) Well adult exam Surgical History Status post partial mastectomy Family History Brother Age: 80 Stroke Father Stroke Mother Heart disease Social History Smoking Status: Never smoker Smoking Status: Never smoker alcohol intake frequency: holidays/special occasions only Substance Use Type: does not use Exam <DO Izaiah Luna Last Filed: 10/02/22 07:19> Initial Vital Signs Initial Vital Signs: Vital Signs Temperature 97.2 F L 10/01/22 16:36 Pulse Rate 75 10/01/22 16:36 Respiratory Rate 18 10/01/22 16:36 Blood Pressure 186/82 H 10/01/22 16:36 Pulse Oximetry 99 10/01/22 16:36 Oxygen Delivery Method Room Air 10/01/22 16:36 [facility] Other: Very dry mucous membranes Resp Effort & Inspection: normal respiratory effort Auscultation: clear to auscultation bilaterally Cardio Rate: regular rate Rhythm: regular rhythm GI Inspection: normal to inspection and non-distended Skin General: no rashes or lesions noted Neuro General: patient alert, patient awake and moves all extremities Extrem General: normal to inspection and capillary refill normal <Dm oGld DO - Last Filed: 10/02/22 03:55> Initial Vital Signs Initial Vital Signs: Vital Signs Temperature 97.2 F L 10/01/22 16:36 Pulse Rate 75 10/01/22 16:36 Respiratory Rate 18 10/01/22 16:36 Blood Pressure 186/82 H 10/01/22 16:36 Pulse Oximetry 99 10/01/22 16:36 Oxygen Delivery Method Room Air 10/01/22 16:36 Course <Herminio Delacruz DO - Last Filed: 10/02/22 07:19> Orders Ordered: Discontinued Medications Sodium Chloride (Normal Saline 0.9%) 1,000 mls @ 1,000 mls/hr IV BOLUS ONE Stop: 10/01/22 17:46 Last Infusion: 10/01/22 17:49 Dose: 0 mls/hr Documented By: Admin: 10/01/22 16:48 Dose: 1,000 mls/hr Documented By: RAH Ondansetron HCl (Ondansetron 4 Mg Odt Prepack) 1 bottle MISC SEEINSTR ONE Stop: 10/01/22 21:20 Last Admin: 10/01/22 21:38 Dose: 1 bottle Documented By: RAH Vital Signs Vital signs: Vital Signs - 8 hr 10/01/22 21:40 Temperature 99.2 F Pulse Rate 86 Blood Pressure 140/72 Pulse Oximetry 98 <Dm Gold DO - Last Filed: 10/02/22 03:55> Orders Ordered: Discontinued Medications Sodium Chloride (Normal Saline 0.9%) 1,000 mls @ 1,000 mls/hr IV BOLUS ONE Stop: 10/01/22 17:46 Last Infusion: 10/01/22 17:49 Dose: 0 mls/hr Documented By: Admin: 10/01/22 16:48 Dose: 1,000 mls/hr Documented By: RAH Ondansetron HCl (Ondansetron 4 Mg Odt Prepack) 1 bottle MISC SEEINSTR ONE Stop: 10/01/22 21:20 Last Admin: 10/01/22 21:38 Dose: 1 bottle Documented By: RAH Vital Signs Vital signs: Vital Signs - 8 hr 10/01/22 21:40 Temperature 99.2 F Pulse Rate 86 Blood Pressure 140/72 Pulse Oximetry 98 MDM - Nausea/Vomiting/Diarrhea <Herminio Delacruz DO - Last Filed: 10/02/22 07:19> Lab Data Attestation: I reviewed the patient's lab results. 10/01/22 17:40 10/01/22 17:40 Labs: Lab Results 10/01/22 10/01/22 Range/Units 17:40 17:40 WBC 6.4 (4.5-11.0) X10^3/uL RBC 4.72 (4.0-5.2) X10^6/uL Hgb 14.4 (12.0-16.0) g/dL Hct 42.6 (36-46) % MCV 90.3 (80-100) fL MCH 30.5 (26-34) PG MCHC 33.8 (30-36) % RDW 13.7 (11.6-14.8) % Plt Count (150-400) X10^3/uL Neut % (Auto) 84.2 H (50-75) % Lymph % (Auto) 10.7 L (25-40) % [place] % (Auto) 4.2 (3-14) % Eos % (Auto) 0.6 L (2-4) % Baso % (Auto) 0.3 (0-2) % Neut # (Auto) 5400 (1963-6957) /uL Lymph # (Auto) 700 L (4339-4469) /uL [place] # (Auto) 300 (0-900) /uL Eos # (Auto) 0 (0-450) /uL Baso # (Auto) 0 (0-100) /uL Sodium 133 L (137-145) mmol/L Potassium 4.7 (3.4-5.1) mmol/L Chloride 100 (98-107) mmol/L Carbon Dioxide 20 L (22-32) mmol/L BUN 10 (7-17) mg/dL Creatinine 0.44 L (0.52-1.04) mg/dL Estimated GFR > 60 (>60) mL/min BUN/Creatinine Ratio 22.7 H (6-22) Glucose 110 (80-110) mg/dL Calcium 8.2 L (8.4-10.2) mg/dL Total Bilirubin 1.0 (0.2-1.3) mg/dL AST 29 (14-36) IU/L ALT 24 (<35) IU/L Alkaline Phosphatase 106 (38-126) U/L Total Protein 7.2 (6.3-8.2) g/dL Albumin 4.4 (3.5-5.0) g/dL Globulin 2.8 (1.7-4.1) g/dL Albumin/Globulin Ratio 1.6 (1.0-2.8) Lipase 98 (23-300) U/L Urine Dip Bedside Urine Glucose Negative Bedside Urine Bilirubin - Negative Bedside Urine Ketone +/- 5 Urine Specific [place] 1.015 Bedside Urine Occult Blood - Negative Bedside Urine pH 7.0 Bedside Urine Protein - Negative Bedside Urine Urobilinogen - Negative Bedside Urine Nitrite - Negative Bedside Urine Leukocytes - Negative Esterase ECG Data Interpretation: Atrial fibrillation Ventricular rate 89 Left anterior fascicular block Nonspecific ST T wave changes MDM Narrative Medical decision making narrative: Patient has been vomiting for the past 12-18 hours. Had positive orthostatics per EMS prior to arrival. She states her nausea is better after the Zofran. Patient is very dry mucous membranes. Was not tachycardic. Not hypotensive here in the ER. Labs were drawn. Fluids administered. Care turned over to Dr. Gold to continue to observe until disposition. <Dm Gold, - Last Filed: 10/02/22 03:55> Lab Data Labs: Lab Results 10/01/22 10/01/22 Range/Units 17:40 17:40 WBC 6.4 (4.5-11.0) X10^3/uL RBC 4.72 (4.0-5.2) X10^6/uL Hgb 14.4 (12.0-16.0) g/dL Hct 42.6 (36-46) % MCV 90.3 (80-100) fL MCH 30.5 (26-34) PG MCHC 33.8 (30-36) % RDW 13.7 (11.6-14.8) % Plt Count (150-400) X10^3/uL Neut % (Auto) 84.2 H (50-75) % Lymph % (Auto) 10.7 L (25-40) % [place] % (Auto) 4.2 (3-14) % Eos % (Auto) 0.6 L (2-4) % Baso % (Auto) 0.3 (0-2) % Neut # (Auto) 5400 (8840-7625) /uL Lymph # (Auto) 700 L (8960-5538) /uL [place] # (Auto) 300 (0-900) /uL Eos # (Auto) 0 (0-450) /uL Baso # (Auto) 0 (0-100) /uL Sodium 133 L (137-145) mmol/L Potassium 4.7 (3.4-5.1) mmol/L Chloride 100 (98-107) mmol/L Carbon Dioxide 20 L (22-32) mmol/L BUN 10 (7-17) mg/dL Creatinine 0.44 L (0.52-1.04) mg/dL Estimated GFR > 60 (>60) mL/min BUN/Creatinine Ratio 22.7 H (6-22) Glucose 110 (80-110) mg/dL Calcium 8.2 L (8.4-10.2) mg/dL Total Bilirubin 1.0 (0.2-1.3) mg/dL AST 29 (14-36) IU/L ALT 24 (<35) IU/L Alkaline Phosphatase 106 (38-126) U/L Total Protein 7.2 (6.3-8.2) g/dL Albumin 4.4 (3.5-5.0) g/dL Globulin 2.8 (1.7-4.1) g/dL Albumin/Globulin Ratio 1.6 (1.0-2.8) Lipase 98 (23-300) U/L Urine Dip Bedside Urine Glucose Negative Bedside Urine Bilirubin - Negative Bedside Urine Ketone +/- 5 Urine Specific [place] 1.015 Bedside Urine Occult Blood - Negative Bedside Urine pH 7.0 Bedside Urine Protein - Negative Bedside Urine Urobilinogen - Negative Bedside Urine Nitrite - Negative Bedside Urine Leukocytes - Negative Esterase MDM Narrative Medical decision making narrative: Patient has been vomiting for the past 12-18 hours. Had positive orthostatics per EMS prior to arrival. She states her nausea is better after the Zofran. Patient is very dry mucous membranes. Was not tachycardic. Not hypotensive here in the ER. Labs were drawn. Fluids administered. Care turned over to Dr. Gold to continue to observe until disposition. [1800] (Asif) Patient received in sign out from [Nubia]. I have reviewed the clinical course and performed an independent history and physical exam. [82] year old patient presents with multiple episodes of nausea, vomiting and diarrhea. Multiple etiologies for patient's symptoms considered including, but not limited to: [Enteritis versus bowel obstruction versus dehydration versus other] Prior Charts reviewed in our EMR Primary Historian: patient Labs reviewed and interpreted by myself: No leukocytosis, left shift or signs of anemia, electrolytes and renal function unremarkable Patient's symptoms improved over duration of stay with above-stated therapies. She has no pain, she is tolerating orals, is ambulatory in the department and no longer dizzy or lightheaded. Findings and discharge diagnosis discussed with patient/family followed by verbalization of understanding Return precautions discussed with patient/family whom verbalize understanding of diagnosis and plan Discharge Plan Departure Patient Disposition: Home Clinical Impression: Vomiting, Diarrhea Instructions: DI for Dehydration -- Adult, DI for Nausea -- Adult, DI for Vomiting -- Adult Activity Restrictions/Additional Instructions: *You have been diagnosed with [Nausea, vomiting, and diarrhea] * As we discussed your history and physical exam as well as labs and imaging are very reassuring. There is no evidence of any severe diagnoses that would require a specific or immediate intervention. *What to do: *Please continue to take your regular medications as directed. *Please follow up with your primary care provider in 2-3 days, call for an appointment. Let them know you were seen in the Emergency Department and that we ask that you be seen in follow up. We will electronically transmit a record of today's note if your PCP is in our system *Please consider a clear liquid diet for the next 24-48 hours and then slowly advance to regular as tolerated. Also, try to avoid alcohol, nicotine, caffeine, spicy, acidic or fatty foods as this may worsen your symptoms *If you do not have a primary care provider please contact the [facility] Resource line at [phone]. They will ask some questions about your medical history and help get you set up with a doctor in the community. *Return to Emergency Department if you should have any new, worsening or concerning symptoms, such as [fever greater than 101 F, shaking chills, worsening pain, persistent vomiting or other bothersome symptoms] Prescriptions: No Action amlodipine 5 mg tablet 5 mg PO DAILY Qty: 90 3RF pharmacy compounding accessory Misc See Rx Instructions .ROUTE .COMPLEX Qty: 24 5RF Rx Instructions: ==Compound Pharmacy== Estradiol 0.0125% cream; Apply pea size amount intravaginally twice a week; lisinopril 10 mg tablet 10 mg PO BID Qty: 180 1RF Patient Comments: patient states took both of todays tablets this morning metoprolol succinate 25 mg tablet extended release 24 hr 25 mg PO DAILY Qty: 90 3RF levothyroxine [Synthroid] 75 mcg tablet 75 mcg PO QAM Qty: 90 3RF doxycycline monohydrate 100 mg tablet 100 mg PO BID Qty: 10 0RF mupirocin 2 % ointment 1 applic topical TID Qty: 15 0RF zolpidem 10 mg tablet 10 mg PO BEDTIME PRN (Reason: Sleep) Qty: 30 1RF Rx Instructions: fill date 05/29/2021 tramadol 50 mg tablet 50 mg PO BID PRN (Reason: pain) Qty: 60 1RF Eye Vitamins 1 dose PO DAILY Fish Oil 1 cap PO DAILY Vitamin D3 1 cap PO DAILY aspirin [Adult Low Dose Aspirin] 81 mg tablet,delayed release (DR/EC) 81 mg PO DAILY dorzolamide-timolol [Cosopt] 22.3-6.8 mg/mL drops 1 drp EYE-BOTH BID Referrals: Cesar Reyna DO [Primary Care Provider] - Stand Alone Forms: Patient Portal/API
[2022-10-01 17:54] LABS: Add Manual Diff / Slide Review NO; Basophils Absolute Auto 0 /uL (0-100); Basophils Percent Auto 0.3 % (0-2); Eosinophils Absolute Auto 0 /uL (0-450); Eosinophils Percent Auto 0.6 % (2-4); Hematocrit 42.6 % (36-46); Hemoglobin 14.4 g/dL (12.0-16.0); Lymphocytes Absolute Auto 700 /uL (1100-4500); Lymphocytes Percent Auto 10.7 % (25-40); Mean Corpuscular HGB Conc 33.8 % (30-36); Mean Corpuscular Hemoglobin 30.5 PG (26-34); Mean Corpuscular Volume 90.3 fL (80-100); Monocytes Absolute Auto 300 /uL (0-900); Monocytes Percent Auto 4.2 % (3-14); Neutrophils Absolute Auto 5400 /uL (1500-7000); Neutrophils Percent Auto 84.2 % (50-75); Red Blood Cell Count 4.72 X10^6/uL (4.0-5.2); Red Cell Distribution Width 13.7 % (11.6-14.8); White Blood Cell Count 6.4 X10^3/uL (4.5-11.0)
[2022-10-01 18:03] LABS: Alanine Aminotransferase 24 IU/L (<35); Albumin 4.4 g/dL (3.5-5.0); Albumin Globulin Ratio 1.6 (1.0-2.8); Alkaline Phosphatase 106 U/L (38-126); Aspartate Aminotransferase 29 IU/L (14-36); BUN Creatinine Ratio 22.7 (6-22); Blood Urea Nitrogen 10 mg/dL (7-17); Calcium 8.2 mg/dL (8.4-10.2); Carbon Dioxide 20 mmol/L (22-32); Chloride 100 mmol/L (98-107); Estimated Glomerular Filt Rate > 60 mL/min (>60); Globulin 2.8 g/dL (1.7-4.1); Glucose 110 mg/dL (80-110); HEMOLYSIS 28 (0-50); Lipase 98 U/L (23-300); Potassium 4.7 mmol/L (3.4-5.1); Sodium 133 mmol/L (137-145); Total Protein 7.2 g/dL (6.3-8.2)
[2022-10-01] MEDS: ONDANSETRON 4 MG ODT PREPACK 1 BOTTLE MISC (21:38)
[2022-10-01 21:40] VITALS: BP 140/72; PULSE 86; TEMP 37.3; O2SAT 98
== END 2022-10-01 22:08 | disposition home or self-care (01) ==
PROVIDERS: Emergency Medicine; Emergency Provider Emergency Medicine; PCP Family Medicine
DX: R11.10 Vomiting, unspecified (principal); R19.7 Diarrhea, unspecified; I95.1 Orthostatic hypotension; R10.9 Unspecified abdominal pain
CPT/HCPCS: 36415; 80053; 81003; 83690; 85025; 93005; 96360; 99284

== ENCOUNTER → 2022-10-05 08:51 | Outpatient (CLI) | payer MEDICARE, SELFPAY ==
[2022-10-05 11:13] LABS: Add Manual Diff / Slide Review NO; Basophils Absolute Auto 100 /uL (0-100); Basophils Percent Auto 1.2 % (0-2); Eosinophils Absolute Auto 300 /uL (0-450); Eosinophils Percent Auto 6.3 % (2-4); Hematocrit 40.4 % (36-46); Hemoglobin 13.5 g/dL (12.0-16.0); Lymphocytes Absolute Auto 1300 /uL (1100-4500); Lymphocytes Percent Auto 25.8 % (25-40); Mean Corpuscular HGB Conc 33.5 % (30-36); Mean Corpuscular Hemoglobin 30.5 PG (26-34); Monocytes Absolute Auto 500 /uL (0-900); Monocytes Percent Auto 10.5 % (3-14); Neutrophils Absolute Auto 2900 /uL (1500-7000); Neutrophils Percent Auto 56.2 % (50-75); Platelet Count 225 X10^3/uL (150-400); Red Blood Cell Count 4.44 X10^6/uL (4.0-5.2); White Blood Cell Count 5.2 X10^3/uL (4.5-11.0)
[2022-10-05 11:53] LABS: Alanine Aminotransferase 25 IU/L (<35); Albumin 4.2 g/dL (3.5-5.0); Albumin Globulin Ratio 1.7 (1.0-2.8); Alkaline Phosphatase 95 U/L (38-126); Aspartate Aminotransferase 27 IU/L (14-36); BUN Creatinine Ratio 16.4 (6-22); Blood Urea Nitrogen 10 mg/dL (7-17); Calcium 9.1 mg/dL (8.4-10.2); Carbon Dioxide 22 mmol/L (22-32); Chloride 101 mmol/L (98-107); Estimated Glomerular Filt Rate > 60 mL/min (>60); Globulin 2.5 g/dL (1.7-4.1); Glucose 91 mg/dL (80-110); HEMOLYSIS < 15 (0-50); Potassium 4.1 mmol/L (3.4-5.1); Sodium 133 mmol/L (137-145); Total Protein 6.7 g/dL (6.3-8.2)
[2022-10-05 12:21] LABS: TSH w/ Reflex to FT4 2.69 uIU/mL (0.47-4.68)
== END ==
PROVIDERS: PCP Family Medicine; Referring Provider Family Medicine; Visit Provider Family Medicine
DX: E03.9 Hypothyroidism, unspecified (principal); I10 Essential (primary) hypertension; Z00.00 Encounter for general adult medical examination without abnormal findings
CPT/HCPCS: 36415; 80053; 84443; 85025

== ENCOUNTER → 2022-11-24 10:37 | Outpatient (CLI) | payer MEDICARE, SELFPAY ==
--- NOTE | 2022-11-24 10:39 | DI.MRI.S_ITS ---
PROCEDURE: MR THORACIC SPINE WO CON INDICATIONS: SPONDYLOSIS / SCOLIOSIS TECHNIQUE: Noncontrast sagittal T1 spine echo and T2 fast spin echo, sagittal STIR, and T2 fast spin echo through the thoracic spine. COMPARISON: [facility] [place], CR, XR THORACIC SPINE 2 VIEWS, 07/15/2022, 10:12. FINDINGS: Image quality: Excellent. Alignment and Curvature: There is normal bony alignment. Bone Marrow: Marrow is of normal overall signal. No acute vertebral body compression fractures. Disc desiccation and mild circumferential disc bulging are seen at the T11-12 level. Spinal Cord: Visualized spinal cord is normal in size and signal. Paraspinous Soft Tissues: No paravertebral masses. Miscellaneous: On axial images, central canal and foramina appear widely patent at all scanned levels. IMPRESSION: No acute osseous abnormality. No significant spinal canal stenosis or neural foraminal narrowing. Approved by: Felix Andrews M.D. on 11/24/2022 at 12:45
--- NOTE | 2022-11-24 11:24 | DI.MRI.S_ITS ---
PROCEDURE: MR LUMBAR SPINE WO CON INDICATIONS: SPONDYLOSIS / SCOLIOSIS TECHNIQUE: Noncontrast sagittal T1 spin echo and T2 fast echo, sagittal STIR, and axial T2 fast spin echo through the lumbar spine. In cases with scoliosis, additional coronal T2 fast spin echo may be performed. COMPARISON: [facility], MR, MR LUMBAR SPINE WO CON, 12/27/2018, 12:49. FINDINGS: Image quality: Excellent. Alignment and Curvature: Mild levoconvex curvature of the lower lumbar spine centered at L4. 2 mm grade 1 anterolisthesis of L4 on L5. Trace 1 mm retrolisthesis at L1-2. Bone Marrow: Marrow is of normal overall signal. No acute vertebral body compression fractures. Mild chronic compression deformity at T12. Spinal Cord: Conus medullaris terminates at the L1 level. Visualized cord demonstrates normal signal and size. Paraspinous Soft Tissues: No paravertebral masses. T12-L1: Disc desiccation without significant spinal canal stenosis or neural foraminal narrowing. L1-L2: Disc desiccation mild loss of disc space height with trace retrolisthesis. No significant spinal canal stenosis or neural foraminal narrowing. L2-L3: Disc desiccation and mild disc bulging that is eccentric towards the left lower foramen. Findings result in rhrm-gh-vgqrzxim narrowing of the left neural foramen without significant spinal canal stenosis or right neural foraminal narrowing. L3-L4: Disc desiccation and severe loss of disc space height with circumferential disc-osteophyte complex as well as mild bilateral facet hypertrophy. Findings result in mild narrowing of the spinal canal as well as mild to moderate bilateral neural foraminal narrowing. L4-L5: Disc desiccation and mild loss of disc space height with grade 1 anterolisthesis and mild circumferential disc bulging as well as moderate right and mild left facet hypertrophy. Findings result in mild left and moderate right neural foraminal narrowing without significant spinal canal stenosis. L5-S1: Disc desiccation and mild circumferential disc bulging as well as mild bilateral facet hypertrophy. Findings result in fzjv-ci-eufezvcx left and moderate right neural foraminal narrowing. IMPRESSION: 1. Multilevel onsw-tb-jnglfbjf degenerative disc disease and facet hypertrophy as described in detail in the body of the report. 2. No high-grade spinal canal stenosis or high-grade neural foraminal narrowing. 3. Chronic mild compression fracture of T12. Approved by: Felix Andrews M.D. on 11/24/2022 at 13:50
== END ==
PROVIDERS: PCP Family Medicine; Referring Provider Physical Medicine & Rehabilitation; Visit Provider Physical Medicine & Rehabilitation
DX: M47.817 Spondylosis without myelopathy or radiculopathy, lumbosacral region (principal); M48.54XA Collapsed vertebra, not elsewhere classified, thoracic region, initial encounter for fracture; M47.816 Spondylosis without myelopathy or radiculopathy, lumbar region; M41.25 Other idiopathic scoliosis, thoracolumbar region; M51.36 Other intervertebral disc degeneration, lumbar region; M51.37 Other intervertebral disc degeneration, lumbosacral region
CPT/HCPCS: 72146; 72148

== ENCOUNTER → 2023-02-09 13:41 | Outpatient (CLI) | payer MEDICARE, SELFPAY ==
[2023-02-09 14:22] LABS: Add Manual Diff / Slide Review NO; Basophils Absolute Auto 100 /uL (0-100); Eosinophils Absolute Auto 200 /uL (0-450); Hematocrit 40.9 % (36-46); Hemoglobin 13.7 g/dL (12.0-16.0); Lymphocytes Absolute Auto 1200 /uL (1100-4500); Lymphocytes Percent Auto 21.3 % (25-40); Mean Corpuscular HGB Conc 33.5 % (30-36); Mean Corpuscular Hemoglobin 30.7 PG (26-34); Mean Corpuscular Volume 91.7 fL (80-100); Monocytes Absolute Auto 600 /uL (0-900); Monocytes Percent Auto 9.7 % (3-14); Neutrophils Absolute Auto 3700 /uL (1500-7000); Platelet Count 260 X10^3/uL (150-400); Red Blood Cell Count 4.46 X10^6/uL (4.0-5.2); Red Cell Distribution Width 14.1 % (11.6-14.8); White Blood Cell Count 5.9 X10^3/uL (4.5-11.0)
[2023-02-09 14:37] LABS: Alanine Aminotransferase 30 IU/L (<35); Albumin 4.7 g/dL (3.5-5.0); Albumin Globulin Ratio 1.6 (1.0-2.8); Alkaline Phosphatase 77 U/L (38-126); Aspartate Aminotransferase 32 IU/L (14-36); BUN Creatinine Ratio 14.3 (6-22); Bilirubin Total 0.7 mg/dL (0.2-1.3); Blood Urea Nitrogen 11 mg/dL (7-17); Calcium 9.1 mg/dL (8.4-10.2); Carbon Dioxide 26 mmol/L (22-32); Chloride 96 mmol/L (98-107); Estimated Glomerular Filt Rate > 60 mL/min (>60); Globulin 2.9 g/dL (1.7-4.1); Glucose 111 mg/dL (80-110); HEMOLYSIS < 15 (0-50); Potassium 4.6 mmol/L (3.4-5.1); Sodium 131 mmol/L (137-145); Total Protein 7.6 g/dL (6.3-8.2)
== END ==
PROVIDERS: Family Provider Family Medicine; PCP Family Medicine; Referring Provider Nurse Practitioner; Visit Provider Nurse Practitioner
DX: I48.19 Other persistent atrial fibrillation (principal)
CPT/HCPCS: 36415; 80053; 85025

== ENCOUNTER → 2023-02-17 10:42 | Outpatient (CLI) | payer MEDICARE, SELFPAY ==
[2023-02-18 17:26] LABS: Fecal Immunochemical Test Negative (Negative)
== END ==
PROVIDERS: Family Provider Family Medicine; PCP Family Medicine; Referring Provider Family Medicine; Visit Provider Family Medicine
DX: R19.7 Diarrhea, unspecified (principal); Z00.00 Encounter for general adult medical examination without abnormal findings
CPT/HCPCS: 82274

== ENCOUNTER → 2023-03-28 06:50 | Outpatient (CLI) | payer MEDICARE, SELFPAY ==
--- NOTE | 2023-03-28 06:52 | DI.ECHO.S_ITS ---
[facility] [facility] +---------+ [facility] +---------+ : : [address] : : : : [id number] : : : : Phone: [phone]+ Echocardiogram Report + + :Name: NESHA ESTRADA Study Date: 03/28/2023 Height: 67 in : :[facility] ReadingLocation: Weight: 124 lb : : Gender: Female BSA: 1.7 m2 : :: 1940 Age: 82 yrs BP: 159/92 mmHg: :Reason For Study: Nonrheumatic Mitral Valve Insufficiency : :Ordering Physician: CALE, : :KD Performed By: Yolette Vyas : :Referring: KD MADSEN : + + Interpretation Summary The left ventricle is normal in size. The left ventricular ejection fraction is normal. The ejection fraction is estimated to be 60-65%. The right ventricle is normal size. Visually RV function appears to be mildly reduced. There is moderate to severe mitral regurgitation. There is moderate to severe tricuspid regurgitation. The right ventricular systolic pressure is estimated to be at least 40 mmHg based on an estimated right atrial pressure of 3 mm Hg. There is mild luminal irregularity and echogenicity in the abdominal aorta, suggestive of aortic atherosclerotic disease. Procedure: A two-dimensional transthoracic echocardiogram with color flow and Doppler was performed. The study quality was technically adequate. The patient had an echocardiogram, but there is no comparison study available. The patient was in atrial fibrillation with heart rates between 55-81 bpm during the exam. Left Ventricle: The left ventricle is normal in size. There is no thrombus. The left ventricular ejection fraction is normal. The ejection fraction is estimated to be 60-65%. There are no focal wall motion abnormalities. Diastolic function could not be accurately assessed due to atrial fibrillation. Right Ventricle: The right ventricle is normal size. Visually RV function appears to be mildly reduced. Atria: The left atrium is moderately dilated. The right atrium is moderately dilated. There is no Doppler evidence for an interatrial shunt. Mitral Valve: The mitral valve leaflets appear borderline thickened, but open well. There is no mitral valve stenosis. There is moderate to severe mitral regurgitation. Aortic Valve: The aortic valve is trileaflet. The aortic valve opens well. There is mild aortic valve sclerosis. There is no aortic valve stenosis. There is mild aortic regurgitation. Tricuspid Valve: The tricuspid valve is normal. There is no tricuspid stenosis. There is moderate to severe tricuspid regurgitation. The right ventricular systolic pressure is estimated to be at least 40 mmHg based on an estimated right atrial pressure of 3 mm Hg. Pulmonic Valve: The pulmonic valve leaflets are thin and pliable; valve motion is normal. There is no pulmonic valvular stenosis. There is mild pulmonic regurgitation. Great Vessels: The aortic root is normal size. The ascending aorta is normal in size. There is mild luminal irregularity and echogenicity in the abdominal aorta, suggestive of aortic atherosclerotic disease. The pulmonary artery is normal size. The IVC is of normal diameter and collapses greater than 50% with a sniff. This suggests a low right atrial pressure of 3 mm Hg. Pericardium/ Pleura There is a trivial pericardial effusion noted. There is an anterior echo-free space consistent with a fat pad. There is no pleural effusion. MMode/2D Measurements & Calculations LVIDd: 3.8 cm LVOT diam: 1.8 cm LVIDs: 2.1 cm Ao root diam: 2.4 cm FS: 44.7 % asc Aorta Diam: 3.0 cm IVSd: 0.90 cm LVPWd: 1.0 cm LV purcell. diameter/BSA (cm/m^2): 2.3 LV sys. diameter/BSA (cm/m^2): 1.3 LA A2 area: 21.4 cm2 RA long axis: 5.5 cm LA A4 area: 21.2 cm2 RA area: 18.5 cm2 LA length (vol): 6.0 cm RA vol: 53.4 ml LA vol: 64.0 ml RA : 32.4 ml/m2 LA vol index: 38.8 ml/m2 IVC diam: 1.8 cm RVD1 (basal): 3.3 cm LVLs ap4: 5.1 cm LVLd ap2: 6.0 cm TAPSE_phl: 0.95 cm LVLs ap2: 5.3 cm Doppler Measurements & Calculations Ao V2 max: 104.0 cm/sec LVOT Max Jb: 84.7 cm/sec Ao V2 mean: 70.6 cm/sec LV V1 max P.9 mmHg Ao max P.0 mmHg LV V1 VTI: 16.5 cm Ao mean P.0 mmHg PJ(I,D): 1.9 cm2 Ao V2 VTI: 21.8 cm PJ(V,D): 2.1 cm2 sev ratio: 0.76 PJ indexed to BSA (cm^2/m^2): 1.2 TR max jb: 304.0 cm/sec SV(LVOT): 42.1 ml TR max P.0 mmHg PA V2 max: 73.3 cm/sec PA V2 mean: 48.9 cm/sec PA mean P.0 mmHg PA pr(Accel): 18.2 mmHg AV VR_phl: 0.81 PJ(VTI)/BSA_phl: 1.2 Reading Physician:03:32 PM
--- NOTE | 2023-03-28 06:53 | DI.US.S_ITS ---
PROCEDURE: US CAROTID DOPPLER BI INDICATIONS: NONRHEUMATIC MITRAL VALVE INSUFFICIENCY TECHNIQUE: Color and pulse Doppler interrogation was performed of both carotid systems, with image documentation and velocity measurements. COMPARISON: [facility], , CAROTID ARTERY DOPPLER BIL, 04/12/2012, 11:17. FINDINGS: Stenosis calculations are based on SRU (Society of Radiologists in Ultrasound) criteria. Right side: Brachial blood pressure: Not obtained Common carotid artery peak systolic velocity: 45 cm/sec. Internal carotid artery peak systolic velocity: 74 cm/sec. Internal carotid artery end diastolic velocity: 24 cm/sec. External carotid artery peak systolic velocity: 51 cm/sec. ICA/CCA peak systolic ratio: 1.6. Chau scale imaging description: Mild atheromatous plaque is present at the bifurcation. Percent internal carotid artery stenosis: Less than 50% . Vertebral artery: Flow direction is antegrade. Left side: Brachial blood pressure: 159/89 mm Hg. Common carotid artery peak systolic velocity: 51 cm/sec. Internal carotid artery peak systolic velocity: 71 cm/sec. Internal carotid artery end diastolic velocity: 25 cm/sec. External carotid artery peak systolic velocity: 58 cm/sec. ICA/CCA peak systolic ratio: 1.3 . Chau scale imaging description: Dense atheromatous plaque is present at the carotid bifurcation. Percent internal carotid artery stenosis: Less than 50% stenosis. Vertebral artery: Flow direction is antegrade. IMPRESSION: Less than 50% stenosis of the bilateral internal carotid arteries. Dictated by: Indiana Morales M.D. on 03/28/2023 at 9:55 Approved by: Indiana Morales M.D. on 03/28/2023 at 10:02
== END ==
PROVIDERS: Family Provider Family Medicine; PCP Family Medicine; Referring Provider Internal Medicine Cardiovascular Disease; Visit Provider Internal Medicine Cardiovascular Disease
DX: I08.3 Combined rheumatic disorders of mitral, aortic and tricuspid valves (principal); Z98.890 Other specified postprocedural states; I65.23 Occlusion and stenosis of bilateral carotid arteries
CPT/HCPCS: 93306; 93880

== ENCOUNTER → 2023-04-15 10:37 | Outpatient (CLI) | payer MEDICARE, SELFPAY | PROVIDERS: Family Provider Family Medicine; PCP Family Medicine; Referring Provider Internal Medicine Gastroenterology; Visit Provider Internal Medicine Gastroenterology | DX: R10.9 Unspecified abdominal pain (principal); R63.4 Abnormal weight loss; R19.4 Change in bowel habit; Z68.1 Body mass index [BMI] 19.9 or less, adult | CPT/HCPCS: 36415; 84443 ==

== ENCOUNTER → 2023-06-23 12:57 | Outpatient (CLI) | payer MEDICARE, SELFPAY ==
[2023-06-23 14:07] LABS: BUN Creatinine Ratio 15.7 (6-22); Blood Urea Nitrogen 11 mg/dL (7-17); Calcium 9.3 mg/dL (8.4-10.2); Carbon Dioxide 27 mmol/L (22-32); Chloride 96 mmol/L (98-107); Estimated Glomerular Filt Rate > 60 mL/min (>60); Glucose 99 mg/dL (80-110); HEMOLYSIS < 15 (0-50); Potassium 4.7 mmol/L (3.4-5.1); Sodium 129 mmol/L (137-145)
== END ==
PROVIDERS: Family Provider Family Medicine; PCP Family Medicine; Referring Provider Internal Medicine Cardiovascular Disease; Visit Provider Internal Medicine Cardiovascular Disease
DX: I10 Essential (primary) hypertension (principal)
CPT/HCPCS: 36415; 80048

== ENCOUNTER 2024-05-07 09:23 | Day surgery (SDC) | payer MEDICARE, SELFPAY ==
--- NOTE | 2024-05-07 | PATH_ITS ---
[facility] Accession Number: [id number] No. of containers..02 Tissue . 01 Material submitted: . PART A: duodenum bulb - DUODENUM PART B: stomach - ANTRUM . 01 Diagnosis: Part A: DUODENUM : Duodenal mucosa with no diagnostic alterations. No active inflammation and no evidence of celiac disease. . Part B: ANTRUM: Gastric mucosa with mild chronic inflammation. No Helicobacter organisms identified. No intestinal metaplasia, dysplasia, or malignancy identified. [facility] 05/10/20241755 Local . 01 Electronically signed: . Be Silver MD, Pathologist NPI- [id number] . 01 Gross description: . A. Received in formalin with two patient identifiers and duodenal biopsy, is a single valenzuela and yellow soft tissue fragment, 0.6 cm in greatest dimension, submitted in A1. . B. Received in formalin with two patient identifiers and antrum biopsy, are two valenzuela soft tissue fragments, 0.3 to 0.4 cm in greatest dimension, submitted in B1. ([id number]) /MRV 05/10/20241755 Local . 01 Microscopic: . Part B: ANTRUM: An immunohistochemical stain was performed to evaluate for Helicobacter organisms and is negative. The control stains appropriately. * This test was developed and the performance characteristics were validated by [facility]. It has not been cleared or approved by the Food and Drug Administration. . 01 Pathologist provided ICD-10: K29.50 . 01 CPT . 233138, 881565, O90602 Specimen Comment: A courtesy copy of this report has been sent to [phone] Performed at: [address] [facility], [place], [place] [id number] MD Be Silver MD Phone: [phone]
[2024-05-07 09:54] VITALS: BP 127/60; PULSE 68; RESP 18; TEMP 36.8; O2SAT 98
--- NOTE | 2024-05-07 09:59 | P.HP_ITS ---
History of Present Illness History of Present Illness Date Patient Seen: 05/07/24 Time Patient Seen: 09:59 Chief complaint: EGD Narrative: 83-year-old female here for postprandial epigastric pain and some weight loss. I reviewed the recent office note by Dr. Velasquez. No changes. The patient does indicate she takes 650 mg of aspirin at night before bed. [facility] Medical History Constipation by delayed colonic transit Scoliosis Left knee DJD Facet arthropathy, lumbar T12 compression fracture Encounter for Medicare annual wellness exam Well adult exam Chronic hypernatremia Ganglion Skin lesion Recurrent UTI HTN (hypertension) Lumbosacral spondylosis History of malignant neoplasm of breast (07/28/16) Status post carotid endarterectomy (07/28/15) Primary open angle glaucoma (POAG) of both eyes (07/28/15) Macular degeneration (07/28/15) Hypothyroidism (09/17/14) Hyperlipidemia (09/17/14) Hypertension (09/17/14) Chest pain Atypical chest pain Surgical History Status post partial mastectomy Family History Brother Age: 81 Stroke Father Stroke Mother Heart disease Social History Smoking Status: Never smoker Meds Home Medications and Allergies Home Medications Medication Instructions Recorded Confirmed Type Fish Oil 1 cap PO DAILY 05/11/18 08/01/23 History Vitamin D3 1 cap PO DAILY 05/11/18 08/01/23 History aspirin 81 mg tablet,delayed 81 mg PO DAILY 10/06/20 08/01/23 History release (Adult Low Dose Aspirin) metoprolol succinate 25 mg 25 mg PO DAILY #90 tabs 02/04/22 05/07/24 Rx tablet,extended release 24 hr mupirocin 2 % topical ointment 1 applic topical TID #15 grams 08/05/22 08/01/23 Rx dorzolamide-timolol (PF) 2 %-0.5 % 1 drp EYE-BOTH BID 11/17/22 08/01/23 History eye drops in a dropperette ofloxacin 0.3 % eye drops 1 drp EYE-BOTH ONCE 01/03/23 08/01/23 History prednisolone acetate 1 % eye 1 drp EYE-BOTH ONCE 01/03/23 08/01/23 History drops,suspension lisinopril 10 mg tablet 10 mg PO BID #180 tabs 03/04/23 08/01/23 Rx amlodipine 5 mg tablet 5 mg PO DAILY #90 tabs 03/17/23 08/01/23 Rx pharmacy compounding accessory See Rx Instructions .Route 10/07/23 Rx .COMPLEX #24 grams levothyroxine 75 mcg tablet 75 mcg PO QAM #90 tabs 11/14/23 Rx (Synthroid) zolpidem 10 mg tablet 10 mg PO BEDTIME PRN Sleep #30 tabs 03/31/24 Rx Allergies Allergy/AdvReac Type Severity Reaction Status Date / Time amoxicillin [AMOXICILLIN] Allergy Mild rash Verified 05/07/24 09:42 adhesive Allergy Unknown Rash Verified 05/07/24 09:42 brimonidine Allergy Unknown Verified 05/07/24 09:42 fentanyl Allergy Unknown Verified 05/07/24 09:42 Sulfa (Sulfonamide Allergy Unknown Verified 05/07/24 09:42 Antibiotics) tramadol AdvReac Mild Nausea, Verified 05/07/24 09:42 vomitting Review of Systems Review of Systems ROS: Yes All systems reviewed with the patient and are negative except as otherwise documented Exam Const General: cooperative HENMT Head: normal to inspection Eyes General: appearance normal, both eyes and all related structures Neck Neck: normal visual inspection Chest Chest: normal inspection of the chest Resp Effort & Inspection: normal respiratory effort Cardio Rate: regular rate GI Inspection: normal to inspection Skin General: no rashes or lesions noted Neuro General: patient alert and patient awake Extrem General: normal to inspection and no pedal edema Psych Appearance: grossly normal Assessment & Plan Assessment & Plan narrative: 83-year-old female with postprandial epigastric pain and weight loss. She is on high-dose aspirin at night. Chronic peptic ulcer disease would be high in the differential but neoplasm needs to be excluded. EGD is pursued today. Time-Based Coding :: [TOTAL MINUTES] spent with patient and on the chart (including review of chart, obtaining history, exam, reviewing outside data, placing orders, documenting exam and treatment plan, and counseling patient) on [DATE].
--- NOTE | 2024-05-07 10:01 | PM.PREOP ---
Pre-operative Note Interval Note History & Physical reviewed/Exam performed by Physician: Yes Changes to H&P: No ASA Class (for procedural sedation): III
--- NOTE | 2024-05-07 10:49 | PM.OP.EGD ---
Operative Date/Time/Diagnoses Date of procedure: 05/07/24 Time of procedure: 10:50 Pre-op diagnosis: Postprandial abdominal pain and weight loss Post-op diagnosis: same Procedure & Clinicians Study performed: EGD with biopsies Same procedure as scheduled: Yes Indications: Postprandial abdominal pain and weight loss Surgeon: Facundo Glaser Procedure Notes SCOAP/Timeout: Done Procedure in detail: After the risks and benefits were explained, written and verbal informed consent was obtained. The patient was brought into the procedure room and placed into the left lateral decubitus position. Conscious sedation medication was applied as per nursing documentation. The scope was introduced into the mouth through the bite block and advanced under direct visualization to the 2nd portion of the duodenum. The scope was slowly withdrawn carefully examining the mucosa for any defects or lesions. Retroflexed views were accomplished in the stomach. The stomach was decompressed, the scope was then removed from the patient who tolerated the procedure well. Sedation minutes: 8 Complications: none Impression: 1. Duodenal: No ulceration identified from the bulb through to the 2nd portion. No stricturing. Random D2 biopsies were taken for exclusion of sprue. 2. Stomach: No outlet obstruction. No mass lesions. No ulceration. Retroflexed views of the LES disclosed a small sliding hiatal hernia. There was a mild gastropathy with some atrophic looking mucosa in the antrum and scattered erythema. Biopsies were taken from the antrum for exclusion of H pylori infection. 3. Esophagus: The squamocolumnar junction correlated with the top of the gastric folds. GEJ was at approximately 40 cm from the incisors. Again subtle sliding hiatal hernia was identified. There was no evidence of esophagitis. The esophagus was otherwise normal. Endoscopic diagnosis 1. Subtle sliding hiatal hernia 2. Mild gastropathy 3. Otherwise visually unremarkable EGD Post-procedure Plan for aftercare: 1. Await histology. 2. If Helicobacter is found, it will need to be eradicated with standard triple therapy. 3. Consider alteration of your use of aspirin. Perhaps a single daily 81 mg aspirin taken in the morning with plenty of food might be a better option. 4. If there are no histologic findings to account for symptoms, consider further cross-sectional abdominal imaging with CT abdomen pelvis. Disposition: PACU
[2024-05-07 10:52] VITALS: BP 84/53; PULSE 54; RESP 14; TEMP 36.5; O2SAT 97
[2024-05-07 10:55] VITALS: BP 92/52; PULSE 64; RESP 15; O2SAT 98
[2024-05-07 10:57] VITALS: BP 92/54; PULSE 73; RESP 14; O2SAT 99
[2024-05-07 11:02] VITALS: BP 103/55; PULSE 68; RESP 15; O2SAT 98
== END 2024-05-07 11:35 | disposition home or self-care (01) ==
PROVIDERS: Family Provider Family Medicine; PCP Family Medicine; Referring Provider Internal Medicine Gastroenterology; Visit Provider Internal Medicine Gastroenterology
PROC: 0DJ08ZZ Inspection of Upper Intestinal Tract, Via Natural or Artificial Opening Endoscopic (ICD-10-PCS; CPT 43235; principal; 2024-05-07 10:30)
DX: R10.9 Unspecified abdominal pain (principal); R63.4 Abnormal weight loss; K31.9 Disease of stomach and duodenum, unspecified; K44.9 Diaphragmatic hernia without obstruction or gangrene; K29.50 Unspecified chronic gastritis without bleeding
CPT/HCPCS: 43239; J2704

== ENCOUNTER → 2024-05-17 12:57 | Outpatient (CLI) | payer MEDICARE, SELFPAY ==
--- NOTE | 2024-05-17 12:59 | DI.ECHO.S_ITS ---
[place] +---------+ Hospital : : [address] : [address] : : [id number] : : Phone: [phone] Echocardiogram Report + + :Name: NESHA ESTRADA Study Date: 05/17/2024 Height: 67 in : :[facility] ReadingLocation: Weight: 119 lb : : Gender: Female BSA: 1.6 m2 : :: 1940 Age: 84 yrs BP: 131/73 mmHg: :Reason For Study: MITRAL VALVE REGURGITATION : :Ordering Physician: CALE, : :KD Performed By: Leandro Marcmu : :Referring: KD MADSEN : + + Interpretation Summary The patient was in atrial fibrillation with heart rates between 51-90 bpm during the exam. The left ventricle is normal in size. The ejection fraction is estimated to be 60-65%. There has been no significant change in LVEF since the previous exam. The right ventricle is normal in size and function. There is moderate mitral regurgitation. Previously moderate to severe MR. There is moderate to severe tricuspid regurgitation. Compared to the prior echo exam, there has been no change in TR severity. The right ventricular systolic pressure is estimated to be at least 49 mmHg based on an estimated right atrial pressure of 8 mm Hg. Previously 40 mmHg. There is mild luminal irregularity and echogenicity in the abdominal aorta, suggestive of aortic atherosclerotic disease. Procedure: A two-dimensional transthoracic echocardiogram with color flow and Doppler was performed. The study quality was technically good. Comparison is made with the echocardiogram of 03/28/2023. The patient was in atrial fibrillation with heart rates between 51-90 bpm during the exam. Left Ventricle: The left ventricle is normal in size. There is normal left ventricular wall thickness. There is no ventricular septal defect visualized. The ejection fraction is estimated to be 60-65%. There has been no significant change since the previous exam. There are no focal wall motion abnormalities. Diastolic function could not be accurately assessed due to atrial fibrillation. Right Ventricle: The right ventricle is normal in size and function. Atria: The left atrium is moderately dilated. There has been no significant change since the previous study. The right atrium is severely dilated. The right atrium has mildly increased in size since the prior echo exam. There is no Doppler evidence for an atrial septal defect. The interatrial septum bows toward right atrium consistent with elevated left atrial pressure. Mitral Valve: The mitral valve leaflets appear mildly thickened, but open well. The mitral valve leaflets are slightly calcified. There is moderate mitral regurgitation. Aortic Valve: The aortic valve is trileaflet. The aortic valve opens well. The aortic valve is mildly calcified. There is no aortic valve stenosis. There is trace aortic regurgitation. Tricuspid Valve: The tricuspid valve is normal. There is moderate to severe tricuspid regurgitation. The right ventricular systolic pressure is estimated to be at least 49 mmHg based on an estimated right atrial pressure of 8 mm Hg. Compared to the prior echo exam, there has been no change in TR severity. Pulmonic Valve: The pulmonic valve leaflets are thin and pliable; valve motion is normal. There is trace pulmonic regurgitation. Great Vessels: The aortic root is normal size. The dimensions of the ascending aorta are normal. There is mild luminal irregularity and echogenicity in the abdominal aorta, suggestive of aortic atherosclerotic disease. The pulmonary artery is normal size. The IVC is dilated (diameter is greater than 2.1 cm) yet it collapses greater than 50% with a sniff. This suggests a right atrial pressure of 8 mm Hg. Pericardium/ Pleura There is no pericardial effusion. There is an anterior echo-free space consistent with a fat pad. There is no pleural effusion. MMode/2D Measurements & Calculations LVIDd: 4.4 cm LVOT diam: 1.9 cm LVIDs: 3.4 cm Ao root diam: 2.8 cm FS: 23.6 % asc Aorta Diam: 3.4 cm EPSS: 0.52 cm IVSd: 0.93 cm LVPWd: 0.88 cm LV purcell. diameter/BSA (cm/m^2): 2.7 LV sys. diameter/BSA (cm/m^2): 2.1 LA A2 area: 22.8 cm2 RA long axis: 6.0 cm LA A4 area: 19.3 cm2 RA area: 24.9 cm2 LA length (vol): 5.7 cm RA vol: 87.8 ml LA vol: 65.7 ml RA : 54.2 ml/m2 LA vol index: 40.5 ml/m2 IVC diam: 2.1 cm RVD1 (basal): 3.6 cm RVD2 (mid): 2.9 cm TAPSE: 2.7 cm Doppler Measurements & Calculations Ao V2 max: 132.2 cm/sec LVOT Max Jb: 93.2 cm/sec Ao V2 mean: 90.8 cm/sec LV V1 max P.5 mmHg Ao max P.0 mmHg LV V1 VTI: 19.1 cm Ao mean P.7 mmHg PJ(I,D): 2.0 cm2 Ao V2 VTI: 26.3 cm PJ(V,D): 2.0 cm2 sev ratio: 0.73 PJ indexed to BSA (cm^2/m^2): 1.3 MV E max jb: 97.0 cm/sec TR max jb: 323.5 cm/sec MV A max jb: 29.4 cm/sec TR max P.8 mmHg MV E/A: 3.3 PA V2 max: 64.7 cm/sec Med Peak E' Jb: 5.4 cm/sec PA V2 mean: 44.2 cm/sec E/E' med: 17.8 PA mean P.87 mmHg Lat Peak E' Jb: 11.4 cm/sec PA pr(Accel): 51.6 mmHg E/E' lat: 8.5 E/e' average: 13.2 MV dec time: 0.12 sec SV(LVOT): 53.5 ml Reading Physician:05:03 PM
== END ==
LOC: ECHO 12:58
PROVIDERS: Family Provider Family Medicine; PCP Family Medicine; Referring Provider Internal Medicine Cardiovascular Disease; Visit Provider Internal Medicine Cardiovascular Disease
DX: I08.1 Rheumatic disorders of both mitral and tricuspid valves (principal)
CPT/HCPCS: 93306

== ENCOUNTER → 2024-09-11 11:31 | Outpatient (CLI) | payer MEDICARE, SELFPAY ==
[2024-09-11 12:09] LABS: Add Manual Diff / Slide Review NO; Basophils Absolute Auto 100 /uL (0-100); Basophils Percent Auto 2.4 % (0-2); Eosinophils Absolute Auto 500 /uL (0-450); Eosinophils Percent Auto 8.1 % (2-4); Hematocrit 38.7 % (36-46); Lymphocytes Absolute Auto 1100 /uL (1100-4500); Lymphocytes Percent Auto 18.4 % (25-40); Mean Corpuscular HGB Conc 33.6 % (30-36); Mean Corpuscular Hemoglobin 30.5 PG (26-34); Mean Corpuscular Volume 90.7 fL (80-100); Monocytes Absolute Auto 700 /uL (0-900); Monocytes Percent Auto 11.5 % (3-14); Neutrophils Absolute Auto 3500 /uL (1500-7000); Neutrophils Percent Auto 59.6 % (50-75); Platelet Count 264 X10^3/uL (150-400); Red Blood Cell Count 4.26 X10^6/uL (4.0-5.2); Red Cell Distribution Width 13.7 % (11.6-14.8); White Blood Cell Count 5.8 X10^3/uL (4.5-11.0)
[2024-09-11 12:49] LABS: Alanine Aminotransferase 21 IU/L (<35); Albumin 4.4 g/dL (3.5-5.0); Albumin Globulin Ratio 1.7 (1.0-2.8); Alkaline Phosphatase 79 U/L (38-126); Aspartate Aminotransferase 33 IU/L (14-36); BUN Creatinine Ratio 16.9 (6-22); Bilirubin Total 0.7 mg/dL (0.2-1.3); Blood Urea Nitrogen 10 mg/dL (7-17); Calcium 9.1 mg/dL (8.4-10.2); Carbon Dioxide 21 mmol/L (22-32); Chloride 98 mmol/L (98-107); Estimated Glomerular Filt Rate > 60 mL/min (>60); Globulin 2.6 g/dL (1.7-4.1); Glucose 113 mg/dL (80-110); HEMOLYSIS 19 (0-50); Potassium 4.6 mmol/L (3.4-5.1); Sodium 128 mmol/L (137-145)
[2024-09-11 13:00] LABS: Free T4, Direct Thyroxine 1.42 ng/dL (0.78-2.19)
[2024-09-11 13:14] LABS: Thyroid Stimulating Hormone 1.21 uIU/mL (0.47-4.68)
== END ==
PROVIDERS: Family Provider Family Medicine; PCP Family Medicine; Referring Provider Family Medicine; Visit Provider Family Medicine
DX: I48.91 Unspecified atrial fibrillation (principal); E78.5 Hyperlipidemia, unspecified; E03.9 Hypothyroidism, unspecified
CPT/HCPCS: 36415; 80053; 84439; 84443; 85025

== ENCOUNTER → 2024-10-11 12:37 | Outpatient (CLI) | payer MEDICARE, SELFPAY ==
--- NOTE | 2024-10-11 12:38 | DI.US.S_ITS ---
PROCEDURE: US CAROTID DOPPLER BI INDICATIONS: PAD TECHNIQUE: Color and pulse Doppler interrogation was performed of both carotid systems, with image documentation and velocity measurements. COMPARISON: [facility], , US CAROTID DOPPLER BI, 03/28/2023, 8:12. FINDINGS: Stenosis calculations are based on SRU (Society [employer] in Ultras[employer]) criteria. Right side: Brachial blood pressure: 158/78 mm Hg. Common carotid artery peak systolic velocity: 47 cm/sec. Internal carotid artery peak systolic velocity: 48 cm/sec. Internal carotid artery end diastolic velocity: 70 cm/sec. External carotid artery peak systolic velocity: 51 cm/sec. ICA/CCA peak systolic ratio: 1.0 . Chau scale imaging description: No focal stenosis seen Percent internal carotid artery stenosis: Less than 50% . Vertebral artery: Flow direction is antegrade. Left side: Brachial blood pressure: 152/87 mm Hg. Common carotid artery peak systolic velocity: 55 cm/sec. Internal carotid artery peak systolic velocity: 61 cm/sec. Internal carotid artery end diastolic velocity: 18 cm/sec. External carotid artery peak systolic velocity: 50 cm/sec. ICA/CCA peak systolic ratio: 1.1 . Chau scale imaging description: No focal stenosis seen Percent internal carotid artery stenosis: Less than 50% . Vertebral artery: Flow direction is antegrade. IMPRESSION: 1. In the right carotid artery, there is less than 50% stenosis based on peak systolic velocity criteria. 2. In the left carotid artery, there is less than 50% stenosis based on peak systolic velocity criteria. 3. Antegrade vertebral arteries. Dictated by: Gómez Parnell M.D. on 10/11/2024 at 17:56 Approved by: Gómez Parnell M.D. on 10/11/2024 at 17:58
--- NOTE | 2024-10-11 12:38 | DI.US.S_ITS ---
PROCEDURE: US ART LOW EXT BILAT W/MART INDICATIONS: PAD TECHNIQUE: Color and pulse Doppler interrogation was performed of both lower extremity arterial systems, with image documentation. COMPARISON: None. FINDINGS: Right lower extremity: Common femoral artery: 70 cm/sec, with triphasic flow. Deep femoral artery: 50 cm/sec, with triphasic flow. Proximal superficial femoral artery: 50 cm/sec, with triphasic flow. Mid superficial femoral artery: 55 cm/sec, with triphasic flow. Distal superficial femoral artery: 50 cm/sec, with triphasic flow. Popliteal artery: 61 cm/sec, with a biphasic flow. Posterior tibial artery: 44 cm/sec, with monophasic flow. Anterior tibial artery/dorsalis pedis: 44 cm/sec, with monophasic flow. Chau-scale imaging description: Scattered plaque Left lower extremity: Common femoral artery: 59 cm/sec, with triphasic flow. Deep femoral artery: 55 cm/sec, with triphasic flow. Proximal superficial femoral artery: 76 cm/sec, with triphasic flow. Mid superficial femoral artery: 58 cm/sec, with triphasic flow. Distal superficial femoral artery: 55 cm/sec, with biphasic flow. Popliteal artery: 37 cm/sec, with biphasic flow. Posterior tibial artery: 21 cm/sec, with monophasic flow. Anterior tibial artery/dorsalis pedis: 21 cm/sec, with monophasic flow. 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 Dictated by: Gómez Parnell M.D. on 10/11/2024 at 19:07 Approved by: Gómez Parnell M.D. on 10/11/2024 at 19:11
== END ==
PROVIDERS: Family Provider Family Medicine; PCP Family Medicine; Referring Provider Internal Medicine Cardiovascular Disease; Visit Provider Internal Medicine Cardiovascular Disease
DX: I73.9 Peripheral vascular disease, unspecified (principal); I65.23 Occlusion and stenosis of bilateral carotid arteries
CPT/HCPCS: 93880; 93922; 93925

== ENCOUNTER → 2024-12-06 11:39 | Outpatient (CLI) | payer MEDICARE, SELFPAY ==
--- NOTE | 2024-12-06 11:41 | DI.RAD.S_ITS ---
PROCEDURE: XR ANKLE RT 2V INDICATIONS: screening TECHNIQUE: 3 views of the ankle were acquired. COMPARISON: None. FINDINGS: Bones: Possible nondisplaced curvilinear fracture of the posterior superior calcaneus noted.. This region is difficult to evaluate due to underpenetrated film. Tibiotalar and talocalcaneal joints: Ankle mortise is normal. Mild degeneration talocalcaneal joint Soft tissues: Mild diffuse soft tissue swelling. IMPRESSION: Possible nondisplaced curvilinear fracture of the posterior superior calcaneus. This region is difficult to evaluate given the underpenetrated film. Please correlate with trauma and point tenderness in this region. Suggest tightly coned calcaneal films for better evaluation Dictated by: Reid Echevarria M.D. on 12/07/2024 at 11:10 Approved by: Reid Echevarria M.D. on 12/07/2024 at 11:14
== END ==
PROVIDERS: Family Provider Family Medicine; PCP Family Medicine; Referring Provider Family Medicine; Visit Provider Family Medicine
DX: M19.071 Primary osteoarthritis, right ankle and foot (principal); M79.671 Pain in right foot; M79.89 Other specified soft tissue disorders
CPT/HCPCS: 73600

== ENCOUNTER → 2025-01-31 13:38 | Outpatient (CLI) | payer MEDICARE, SELFPAY ==
[2025-01-31 14:48] LABS: Add Manual Diff / Slide Review NO; Hematocrit 38.4 % (36-46); Hemoglobin 12.9 g/dL (12.0-16.0); Lymphocytes Absolute Auto 900 /uL (1100-4500); Mean Corpuscular HGB Conc 33.7 % (30-36); Mean Corpuscular Hemoglobin 30.8 PG (26-34); Mean Corpuscular Volume 91.4 fL (80-100); Platelet Count 319 X10^3/uL (150-400)
[2025-01-31 15:05] LABS: HEMOLYSIS < 15 (0-50); Iron 94 ug/dL (37-170)
[2025-01-31 15:07] LABS: Alanine Aminotransferase 17 IU/L (<35); Albumin 4.4 g/dL (3.5-5.0); Albumin Globulin Ratio 1.8 (1.0-2.8); Alkaline Phosphatase 79 U/L (38-126); Blood Urea Nitrogen 14 mg/dL (7-17); Calcium 9.1 mg/dL (8.4-10.2); Carbon Dioxide 23 mmol/L (22-32); Chloride 95 mmol/L (98-107); Estimated Glomerular Filt Rate > 60 mL/min (>60); Globulin 2.5 g/dL (1.7-4.1); Glucose 87 mg/dL (70-99); HEMOLYSIS < 15 (0-50); Potassium 4.8 mmol/L (3.4-5.1); Sodium 128 mmol/L (137-145); Total Protein 6.9 g/dL (6.3-8.2)
[2025-01-31 15:13] LABS: Hemoglobin A1C% w Est Avg Glu 5.7 % (4.0-6.0)
[2025-01-31 15:16] LABS: Percent Iron Saturation 29 % (15-50); Total Iron Binding Capacity 320 ug/dL (265-497); Transferrin 275 mg/dL (206-381)
[2025-01-31 15:23] LABS: Free T4, Direct Thyroxine 1.30 ng/dL (0.78-2.19)
[2025-01-31 15:37] LABS: Thyroid Stimulating Hormone 0.894 uIU/mL (0.47-4.68)
[2025-01-31 15:55] LABS: Vitamin B12 833 pg/mL (239-931)
== END ==
PROVIDERS: Family Provider Family Medicine; PCP Family Medicine; Referring Provider Family Medicine; Visit Provider Family Medicine
DX: R73.9 Hyperglycemia, unspecified (principal); E87.1 Hypo-osmolality and hyponatremia; M79.671 Pain in right foot; I10 Essential (primary) hypertension; E03.9 Hypothyroidism, unspecified
CPT/HCPCS: 36415; 80053; 82607; 83036; 83540; 83550; 84439; 84443; 85025